=== PATIENT | female | born 1940 | race Caucasian/White ===

== ENCOUNTER 2016-10-22 10:20 | Outpatient (CLI) | payer MEDICARE, OTHER | END 2016-10-22 10:21 | disposition home or self-care (01) | DX: I25.10 Atherosclerotic heart disease of native coronary artery without angina pectoris (principal); E03.9 Hypothyroidism, unspecified ==

== ENCOUNTER 2016-10-25 10:35 | Outpatient (CLI) | payer MEDICARE, OTHER | END 2016-10-25 10:36 | disposition home or self-care (01) | DX: E03.9 Hypothyroidism, unspecified (principal); D72.829 Elevated white blood cell count, unspecified ==

== ENCOUNTER 2016-11-05 09:52 | Outpatient (CLI) | payer MEDICARE, OTHER | END 2016-11-05 09:53 | disposition home or self-care (01) | DX: D72.829 Elevated white blood cell count, unspecified (principal) ==

== ENCOUNTER 2017-01-22 16:48 | Outpatient (CLI) | payer MEDICARE, OTHER | END 2017-01-22 16:49 | disposition critical access hospital (66) | LOC: EMS 16:48 | PROVIDERS: ATTEND Surgery | DX: S81.812A Laceration without foreign body, left lower leg, initial encounter (principal) | CPT/HCPCS: A0425; A0429 ==

== ENCOUNTER 2017-01-22 17:03 | Emergency (ER) | payer MEDICARE, OTHER | END 2017-01-22 18:23 | disposition home or self-care (01) | DX: S81.812A Laceration without foreign body, left lower leg, initial encounter (principal); S81.811A Laceration without foreign body, right lower leg, initial encounter; W54.1XXA Struck by dog, initial encounter; I10 Essential (primary) hypertension; I25.2 Old myocardial infarction; J44.9 Chronic obstructive pulmonary disease, unspecified; E03.9 Hypothyroidism, unspecified; Z79.82 Long term (current) use of aspirin; F17.200 Nicotine dependence, unspecified, uncomplicated ==

== ENCOUNTER 2017-02-28 09:54 | Outpatient (CLI) | payer MEDICARE, OTHER ==
[2017-02-28 14:32] LABS: BASOPHILS # (AUTO) 0.1 10^3/uL (0.0-0.1); BASOPHILS % (AUTO) 0.8 %; EOSINOPHILS # (AUTO) 0.2 10^3/uL (0.0-0.7); EOSINOPHILS % (AUTO) 1.7 %; HCT - HEMATOCRIT 34.8 % (37.0-47.0); HGB - HEMOGLOBIN 11.7 g/dL (12.0-16.0); LYMPHOCYTES % (AUTO) 19.9 %; MEAN CORPUSCULAR HEMOGLOBIN 30.6 pg (27.0-31.0); MEAN CORPUSCULAR HGB CONC 33.5 g/dL (32.0-36.0); MEAN CORPUSCULAR VOLUME 91.4 fL (81.0-99.0); MEAN PLATELET VOLUME 8.3 fL (7.9-10.8); MONOCYTES % (AUTO) 9.8 %; NEUTROPHILS # (AUTO) 6.7 10^3/uL (1.5-6.6); NEUTROPHILS % (AUTO) 67.8 %; NUCLEATED RED BLOOD CELLS AUTO 0.1 /100WBC; RED BLOOD COUNT 3.81 10^6/uL (4.20-5.40); RED CELL DISTRIBUTION WIDTH 17.5 % (12.0-15.0); UNCORRECTED WHITE BLOOD COUNT 9.9 x10^3/uL; WHITE BLOOD COUNT 9.9 x10^3/uL (4.8-10.8)
[2017-02-28 15:01] LABS: BUN - BLOOD UREA NITROGEN 13 mg/dL (6-20); CALCIUM 9.6 mg/dL (8.5-10.3); CARBON DIOXIDE - CO2 30 mmol/L (21-32); CHLORIDE 97 mmol/L (101-111); CHOL/HDL RATIO 2.2 (<4.4); CHOLESTEROL 216 mg/dL; CREATININE 0.8 mg/dL (0.4-1.0); GFR - MDRD 70 (>89); GLUCOSE 90 mg/dL (70-100); HDL CHOLESTEROL 99 mg/dL; LDL/HDL RATIO 0.8 (<4.4); POTASSIUM 4.3 mmol/L (3.5-5.0); SODIUM 137 mmol/L (135-145); TRIGLYCERIDES 168 mg/dL; VLDL CHOLESTEROL 34 mg/dL
== END 2017-02-28 09:55 | disposition home or self-care (01) ==
LOC: LAB.WCP 09:54
PROVIDERS: ATTEND Internal Medicine Cardiovascular Disease
DX: I25.10 Atherosclerotic heart disease of native coronary artery without angina pectoris (principal); I10 Essential (primary) hypertension; Z95.5 Presence of coronary angioplasty implant and graft; E78.5 Hyperlipidemia, unspecified; J44.9 Chronic obstructive pulmonary disease, unspecified; F17.200 Nicotine dependence, unspecified, uncomplicated
CPT/HCPCS: 36415; 80048; 80061; 85025

== ENCOUNTER 2017-08-25 14:17 | Outpatient (CLI) | payer MEDICARE, OTHER | END 2017-08-25 14:18 | disposition critical access hospital (66) | LOC: EMS 14:17 | PROVIDERS: ATTEND Surgery | DX: R06.02 Shortness of breath (principal) | CPT/HCPCS: A0425; A0427 ==

== ENCOUNTER 2017-08-25 14:35 | Observation (INO) | payer MEDICARE, OTHER ==
--- NOTE | 2017-08-25 15:06 | ED Physician Documentation ---
PD HPI DYSPNEA - Stated complaint Stated Complaint: SOA - Chief complaint Chief Complaint: Resp - History obtained from History obtained from: Patient, Family - History of Present Illness Timing - onset: How many weeks ago (2) Timing - onset during: Rest Timing - duration: Weeks (2) Timing - details: Gradual onset Pain level max: 0 Pain level now: 0 Inciting event(s): URI (fever, cough, chills) Improved by: O2 (on 2L NC at home) Associated symptoms: Fever, Cough, Wheezing. No: Hemoptysis, Chest pain / discomfort Similar symptoms before: Diagnosis (COPD, pneumonia) Recently seen: Clinic (recently placed on abx, thinks levaquin, but is not better. Also was on a prednisone taper for 10 days. states not better.) Review of Systems Ten Systems: 10 systems reviewed and negative Constitutional: reports: Fever, Chills Ears: denies: Ear pain Nose: denies: Rhinorrhea / runny nose, Congestion Throat: denies: Sore throat Cardiac: denies: Chest pain / pressure Respiratory: reports: Dyspnea, Cough, Wheezing GI: denies: Abdominal Pain, Nausea, Vomiting, Diarrhea Skin: denies: Rash Musculoskeletal: denies: Neck pain, Back pain Neurologic: denies: Focal weakness, Numbness, Headache PD PAST MEDICAL HISTORY - Past Medical History Past Medical History: Yes Cardiovascular: Hypertension, [place], Murmur Respiratory: COPD, Shortness of breath Neuro: None Endocrine/Autoimmune: HyPOthyroidism GI: None : Incontinence HEENT: None Psych: None Musculoskeletal: Osteoarthritis, Other Derm: None - Past Surgical History General: Appendectomy, 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, Other - Present Medications Home Medications: Ambulatory Orders Medication Instructions Recorded Confirmed Aspirin EC [Ecotrin] 81 mg PO DAILY 04/17/13 08/25/17 Budesonide/Formoterol Fumarate 2 puffs INH BID 04/17/13 08/25/17 [Symbicort 160-4.5 Mcg Inhaler] Furosemide [Lasix] 20 mg PO DAILY 04/17/13 08/25/17 Levothyroxine [Synthroid] 50 mcg PO QDAC 04/17/13 08/25/17 Verapamil ER [Calan SA] 120 mg PO QPM 04/17/13 08/25/17 Atorvastatin Calcium 40 mg PO QPM 02/08/17 08/25/17 Albuterol Sulfate [Proair Hfa 2 puffs INH Q4H PRN 08/25/17 08/25/17 Inhaler] Hydrocodone/Acetaminophen 1 each PO Q6H PRN 08/25/17 08/25/17 [Hydrocodon-Acetaminoph 7.5-325] Ipratropium/Albuterol [Duoneb] 3 ml INH QID 08/25/17 08/25/17 Metoprolol Succinate 100 mg PO DAILY 08/25/17 08/25/17 - Allergies Allergies/Adverse Reactions: Allergies Allergy/AdvReac Type Severity Reaction Status Date / Time Penicillins Allergy Unknown unknown Verified 08/25/17 14:40 Sulfa (Sulfonamide Allergy Unknown unknown Verified 08/25/17 14:40 Antibiotics) tape adhesive AdvReac Intermediate tears skin Uncoded 01/22/17 17:05 - Social History Does the pt smoke?: No Smoking Status: Current every day smoker Does the pt drink ETOH?: Yes Does the pt have substance abuse?: No - Immunizations Immunizations are current?: No PD ED PE NORMAL - Vitals Vital signs reviewed: Yes - General General: Alert and oriented X 3, No acute distress, Well developed/nourished - HEENT HEENT: PERRL, Ears normal, Moist mucous membranes, Pharynx benign - Neck Neck: Supple, no meningeal sign - Cardiac Cardiac: RRR, Strong equal pulses - Respiratory Respiratory: No respiratory distress, Other (very diminished breath sounds bilaterally. Wheezing B. ) - Abdomen Abdomen: Soft, Non tender, Non distended - Derm Derm: Warm and dry - Extremities Extremities: No edema, No calf tenderness / cord - Neuro Neuro: Alert and oriented X 3 - Psych Psych: Normal mood, Normal affect Results - Vitals Vitals: Vital Signs - 24 hr 08/25/17 08/25/17 08/25/17 14:37 16:10 17:02 Temperature 36.0 C L Heart Rate 100 99 103 H Respiratory 26 H 22 21 Rate Blood Pressure 176/80 H 155/98 H O2 Saturation 100 99 08/25/17 08/25/17 17:30 17:45 Temperature Heart Rate 106 H 102 H Respiratory 34 H 28 H Rate Blood Pressure 146/99 H 135/84 H O2 Saturation 94 99 Oxygen O2 Source Nasal cannula Oxygen Flow Rate 2 - EKG (time done) 1514 Rate: Rate (enter#) (106) Rhythm: Sinus tachycardia Anderson: Normal Intervals: Normal UT QRS: Normal Ischemia: Normal ST segments Computer interpretation: Agree with computer - Labs Labs: Laboratory Tests 08/25/17 08/25/17 08/25/17 14:55 14:55 14:55 WBC 13.8 H RBC 4.01 L Hgb 12.2 Hct 36.8 L MCV 91.8 MCH 30.4 MCHC 33.1 RDW 16.4 H Plt Count 286 MPV 7.7 L Neut # 11.4 H Lymph # 0.9 L [place] # 1.2 H Eos # 0.3 Baso # 0.1 Absolute Nucleated RBC 0.00 Nucleated RBC % 0.0 Sodium 136 Potassium 4.0 Chloride 89 L Carbon Dioxide 33 H Anion Gap 14.0 H BUN 17 Creatinine 0.9 Estimated GFR (MDRD) 61 L Glucose 128 H Lactic Acid Calcium 9.3 Total Bilirubin 0.5 AST 32 ALT 20 Alkaline Phosphatase 67 Troponin I < 0.04 Total Protein 6.9 Albumin 3.6 Globulin 3.3 Albumin/Globulin Ratio 1.1 Lipase 20 L 08/25/17 15:11 WBC RBC Hgb Hct MCV MCH MCHC RDW Plt Count MPV Neut # Lymph # [place] # Eos # Baso # Absolute Nucleated RBC Nucleated RBC % Sodium Potassium Chloride Carbon Dioxide Anion Gap BUN Creatinine Estimated GFR (MDRD) Glucose Lactic Acid 1.3 Calcium Total Bilirubin AST ALT Alkaline Phosphatase Troponin I Total Protein Albumin Globulin Albumin/Globulin Ratio Lipase - Rads (name of study) cxr Radiology: Prelim report reviewed, EMP read contemporaneously, See rad report ( Stable chest. Moderate hyperinflation consistent with COPD. No pneumonia, CHF or other acute process. ) PD MEDICAL DECISION MAKING - ED course Complexity details: reviewed old records, reviewed results, re-evaluated patient , considered differential (No evidence of pneumonia, pulmonary embolus), d/w patient, d/w family ED course: Patient is a 76-year-old female who presents to the emergency department with what appears to be a COPD exacerbation. She is normally on 2 L of home O2, with EMS she received nebulizer treatment and had to increase her oxygen to 3 L. She was then given steroids here as well as his several nebulizer treatments. Oxygen level when she is lying still in bed is approximately 96% on 2 L, however whenever she starts to move or attempts to stand up drops to the mid 80s. She becomes visibly short of breath and unable to ambulate. Her aeration did improve slightly with nebulizer treatment, but will place in observation for continued care. Discussed the case with Dr. Obando, hospitalist who accepts. No evidence of pneumonia on x-ray. This document was made in part using voice recognition software. While efforts are made to proofread this document, sound alike and grammatical errors may occur. Departure - Departure Disposition: ED Place in Observation Clinical Impression: COPD exacerbation Dyspnea Qualifiers: Dyspnea type: unspecified Qualified Code(s): R06.00 - Dyspnea, unspecified Condition: Stable Discharge Date/Time: 08/25/17 18:51
[2017-08-25 15:10] LABS: BASOPHILS # (AUTO) 0.1 10^3/uL (0.0-0.1); BASOPHILS % (AUTO) 0.6 %; EOSINOPHILS # (AUTO) 0.3 10^3/uL (0.0-0.7); HCT - HEMATOCRIT 36.8 % (37.0-47.0); HGB - HEMOGLOBIN 12.2 g/dL (12.0-16.0); LYMPHOCYTES # (AUTO) 0.9 10^3/uL (1.5-3.5); LYMPHOCYTES % (AUTO) 6.8 %; MEAN CORPUSCULAR HEMOGLOBIN 30.4 pg (27.0-31.0); MEAN CORPUSCULAR HGB CONC 33.1 g/dL (32.0-36.0); MEAN CORPUSCULAR VOLUME 91.8 fL (81.0-99.0); MEAN PLATELET VOLUME 7.7 fL (7.9-10.8); MONOCYTES # (AUTO) 1.2 10^3/uL (0.0-1.0); MONOCYTES % (AUTO) 8.4 %; NEUTROPHILS # (AUTO) 11.4 10^3/uL (1.5-6.6); NEUTROPHILS % (AUTO) 82.2 %; RED BLOOD COUNT 4.01 10^6/uL (4.20-5.40); RED CELL DISTRIBUTION WIDTH 16.4 % (12.0-15.0); UNCORRECTED WHITE BLOOD COUNT 13.8 x10^3/uL; WHITE BLOOD COUNT 13.8 x10^3/uL (4.8-10.8)
[2017-08-25 15:19] LABS: ALBUMIN/GLOBULIN RATIO 1.1 (1.0-2.2); BILIRUBIN,TOTAL 0.5 mg/dL (0.2-1.0); CALCIUM 9.3 mg/dL (8.5-10.3); CREATININE 0.9 mg/dL (0.4-1.0); TOTAL PROTEIN 6.9 g/dL (6.7-8.2)
[2017-08-25] MEDS ORDERED: methylPREDNISolone SUCCINATE 125 MG/2 ML VIAL IVP STA (15:38)
[2017-08-25] MEDS ORDERED: IPRATROPIUM/ALBUTEROL 3 ML NEB INH STA (15:38)
[2017-08-25] MEDS ORDERED: methylPREDNISolone SUCCINATE 125 MG/2 ML VIAL ONE (15:48)
--- NOTE | 2017-08-25 15:53 | XRAY Preliminary Report ---
Exam: XR CHEST 2 VIEW PA/LAT IMPRESSION: Stable chest. Moderate hyperinflation consistent with COPD. No pneumonia, CHF or other ac nez perce process. [facility] SITE ID: [id number]
--- NOTE | 2017-08-25 15:55 | XRAY Report ---
EXAM: CHEST RADIOGRAPHY, 2 VIEWS EXAM DATE: 08/25/2017 03:04 PM. CLINICAL HISTORY: 76-year-old female with fever and cough. COMPARISON: AP portable study 03/30/2016 and earlier studies.. TECHNIQUE: Upright PA and lateral views. FINDINGS: Lungs/Pleura: No focal opacities evident. No pleural effusion. No pneumothorax. Moderate hyperinflati on, as previously. Mediastinum: Heart and mediastinal contours are unremarkable. No pulmonary vascular congestion or sylvia nopathy. Other: Trachea is midline. Osseous structures are unremarkable for age. IMPRESSION: Stable chest. Moderate hyperinflation consistent with COPD. No pneumonia, CHF or other ac torin process. [facility] Referring Provider Line: [phone] SITE ID: [id number]
[2017-08-25] MEDS ORDERED: IPRATROPIUM/ALBUTEROL 3 ML NEB INH ONE (16:13)
[2017-08-25] MEDS ORDERED: ALBUTEROL NEB 2.5 MG/3 ML INH STA (17:03)
[2017-08-25] MEDS ORDERED: ALBUTEROL NEB 2.5 MG/3 ML INH ONE (17:34)
[2017-08-25] MEDS ORDERED: ACETAMINOPHEN 325 MG TABLET PO PRN (17:52)
[2017-08-25] MEDS ORDERED: ZOLPIDEM 5 MG TABLET PO PRN (17:52)
[2017-08-25] MEDS ORDERED: ONDANSETRON 4 MG/2 ML VIAL IVP PRN (17:52)
--- NOTE | 2017-08-25 18:12 | HISTORY & PHYSICAL EXAMINATION ---
Chief Complaint - Chief Complaint Chief Complaint: shortness of breath History of Present Illness - Admitted From Admitted From:: ER - History Obtained From History obtained from: pt - History of Present Illness HPI Comment/Other: This is a 76-year-old female with PMH of HTN, [place], Heart Murmur, severe COPD with daily 2 L of O2, current cigarette smoker, shortness of breath, hypothyroidism, urinary incontinence, osteoarthritis, who presents to the emergency department with shortness of breath, which appears to be a COPD exacerbation. Pt report she has normally on 2 L of home O2. In EMS pt received nebulizer treatment. Pt's oxygen increase to 3 L. She was then given steroids in ER room, as well as his several nebulizer treatments. Oxygen saturation level approximately has 96% on 2 L when she is lying still in bed, however when she starts to move or attempts to stand up drops to the mid 80s. She becomes short of breath when ambulating. Pt is still smoking cigarette daily. No evidence of pneumonia, CHF or fluid or other acute process on x-ray, moderate hyperinflation consistent with COPD. 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 Pt has partner, no children. Pt is still smoking with cigarette. Denies alcohol or drug issue. Living arrangement: At home Living Situation: With spouse/s.o. - Substance History Use: Uses substance without health or social issues: Tobacco Dependence: Experiences withdrawal or developed tolerances: Tobacco Tobacco Details: Cigarettes - POLST POLST Status: Full Code Meds/Allgy - Home Medications Home Medications: Ambulatory Orders Medication Instructions Recorded Confirmed Aspirin EC [Ecotrin] 81 mg PO DAILY 04/17/13 08/25/17 Budesonide/Formoterol Fumarate 2 puffs INH BID 04/17/13 08/25/17 [Symbicort 160-4.5 Mcg Inhaler] Furosemide [Lasix] 20 mg PO DAILY 04/17/13 08/25/17 Levothyroxine [Synthroid] 50 mcg PO QDAC 04/17/13 08/25/17 Verapamil ER [Calan SA] 120 mg PO QPM 04/17/13 08/25/17 Atorvastatin Calcium 40 mg PO QPM 02/08/17 08/25/17 Albuterol Sulfate [Proair Hfa 2 puffs INH Q4H PRN 08/25/17 08/25/17 Inhaler] Hydrocodone/Acetaminophen 1 each PO Q6H PRN 08/25/17 08/25/17 [Hydrocodon-Acetaminoph 7.5-325] Ipratropium/Albuterol [Duoneb] 3 ml INH QID 08/25/17 08/25/17 Metoprolol Succinate 100 mg PO DAILY 08/25/17 08/25/17 - Allergies Allergies/Adverse Reactions: Allergies Allergy/AdvReac Type Severity Reaction Status Date / Time Penicillins Allergy Unknown unknown Verified 08/25/17 14:40 Sulfa (Sulfonamide Allergy Unknown unknown Verified 08/25/17 14:40 Antibiotics) tape adhesive AdvReac Intermediate tears skin Uncoded 01/22/17 17:05 Review of Systems - Constitutional Constitutional: reports: Night sweats. denies: Fatigue, Fever, Chills, Malaise , Weakness, Poor appetite, Diaphoresis - Eyes Eyes: denies: Pain, Irritation, Amaurosis, Blurred vision, Spots in vision, Field loss, Vision loss, Dipolpia - Ears, Nose & Throat Ears, Nose & Throat: denies: Ear pain, Hearing loss, Hearing aids, Tinnitus, Vertigo, Nasal pain, Nasal discharge, Nosebleeds, Sore throat, Bleeding gums - Cardiovascular Cariovascular: denies: Irregular heart rate, Palpitations, Chest pain, Edema, Lightheadedness, Syncope, Exertional dyspnea, Decr. exercise tolerance - Respiratory Respiratory: reports: Cough, Sputum production, Wheezing, SOB with exertion. denies: Snoring, Hemoptysis, Orthopnea, SOB at rest, Apnea, Stridor, Pleuritic pain - Gastrointestinal Gastrointestinal: denies: Abdominal pain, Abdominal distention, Constipation, Diarrhea, Change in bowel habits, Rectal bleeding, Black stools, Bloody stools, Nausea, Vomiting, Ji blood emesis, Coffee grounds emesis, Reflux/heartburn - Genitourinary Genitourinary: denies: Dysuria, Frequency, Urgency, Hematuria, Incontinence, Flank pain, Nocturia, Urethral discharge - Musculoskeletal Musculoskeletal: denies: Muscle pain, Back pain, Muscle aches, Stiffness, Limited range of motion, Muscle weakness, Gout, Joint pain - Integumentary Integumentary: denies: Rash, Lesions, Dryness, Lumps, Pigment changes - Neurological Neurological: denies: General weakness, Focal weakness, Headache, Dizziness, Numbness, Memory problems, Pre-existing deficit, Abnormal gait, Seizures, Incoordination, Slurred speech - Psychiatric Psychiatric: denies: Depression, Anxiety, Suicidal, Delusions, Hallucinations, Homicidal - Endocrine Endocrine: denies: Polyuria, Polydypsia, Polyphagia, Intolerance to cold - Hematologic/Lymphatic Hematologic/Lymphatic: denies: Anemia, Bruising, Petechiae, Blood clots, Lymphadenopathy, Bleeding tendencies Exam - Vital Signs Reviewed Vital Signs: Yes Vital Signs: Vital Signs x48h Temp Pulse Resp BP Pulse Ox 08/25/17 17:45 102 H 28 H 135/84 H 99 08/25/17 17:30 106 H 34 H 146/99 H 94 08/25/17 17:02 103 H 21 155/98 H 99 08/25/17 16:10 99 22 08/25/17 14:37 36.0 C L 100 26 H 176/80 H 100 - Physical Exam General Appearance: positive: No acute distress, Alert. negative: Lethargic Eyes Bilateral: positive: Normal inspection, PERRL, No lid inflammation, Conjunctivae nml ENT: positive: ENT inspection nml, Pharynx nml, No signs of dehydration. negative: Purulent nasal drainage, Pharyngeal erythema, Oral lesions Neck: positive: Nml inspection, Thyroid nml, No JVD, Trachea midline. negative : Thyromegaly, Lymphadenopathy (R), Lymphadenopathy (L), Stiff neck, Carotid bruit, Swelling/bruising, Tracheal deviation Respiratory: positive: Chest non-tender, No respiratory distress, Wheezes Cardiovascular: positive: Regular rate & rhythm, No murmur, No gallop. negative : Irregularly irregular, Extrasystoles, Tachycardia, Bradycardia, Systolic murmur, Diastolic murmur Peripheral Pulses: positive: 2+ Abdomen: positive: Non-tender, No organomegaly, Nml bowel sounds, No distention. negative: Tenderness, Guarding, Rebound, Abnml bowel sounds Back: positive: Nml inspection. negative: CVA tenderness (R), CVA tenderness (L ) Skin: positive: Color nml, No rash, Warm, Dry. negative: Cyanosis, Diaphoresis , Pallor Extremities: positive: Non-tender, Full ROM, Nml appearance. negative: Calf tenderness, Joint swelling, Deric's sign/cords Neurologic/Psychiatric: positive: Oriented x3, Motor nml, Sensation nml, Mood/ affect nml. negative: Sensory loss, Facial droop, Slurred/abnml speech, Depressed mood/affect Conclusion/Plan - Problem List (1) COPD exacerbation Conclusion/Plan: hx of COPD, O2 dependence at home. CXR reveals moderate hyperinflation consistent with COPD solu-metrol IV, Duoneb Albuterol PRN O2 NS monitor vital, Oxyometer (2) Dyspnea Conclusion/Plan: hx of SOB, with O2 dependence at home. it appears COPD exacerbation will do De-saturation O2 study on rest, walk, with O2 supplement. may consider cardiac study if improvement is limited by treatment of COPD exacerbation continue O supplement continue treatment of COPD exacerbation vital, Saturation of O2 monitor Qualifiers: Dyspnea type: unspecified Qualified Code(s): R06.00 - Dyspnea, unspecified (3) Hx of non-ST elevation myocardial infarction (NSTEMI) Conclusion/Plan: pt denies chest pain, troponin test negative. EKG sinus tachycardia. will continue tele and vital monitor resume of home medication regime. (4) Cigarette smoker Conclusion/Plan: pt is current smoker. consult pt for quitting cigarette smoking. Nicotine patch (5) Hypothyroidism Conclusion/Plan: stable, resume home Levothyroid check TSH (6) DVT prophylaxis Conclusion/Plan: SCD and Lovenox (7) Full code status Conclusion/Plan: pt request full code status - Lab Results Fish Bones: 08/26/17 05:05 08/26/17 06:12 Issues/Core Measures - Anticipated LOS Anticipated Stay Length: Less than 2 midnights (expected less than 2 midnight for COPD exacerbation treatment) - [facility] Requirement for [facility] I expect patient to be DC'd or transferred within 96 hours.: Yes
[2017-08-25] MEDS: LEVOTHYROXINE 25 MCG TABLET PO SCH (19:20)
[2017-08-25] MEDS: HYDROcod/ACETAM 7.5 MG/325 MG TABLET PO PRN (19:20)
[2017-08-25] MEDS: METOPROLOL SUCCINATE 50 MG TABLET PO SCH (20:42)
[2017-08-25] MEDS: VERAPAMIL ER 120 MG TABLET PO SCH (20:42)
[2017-08-25] MEDS: ATORVASTATIN 40 MG TABLET PO SCH (20:42)
[2017-08-25] MEDS: IPRATROPIUM/ALBUTEROL 3 ML NEB INH PRN (20:45)
[2017-08-25] MEDS: methylPREDNISolone SUCCINATE 125 MG/2 ML VIAL IVP SCH (20:47)
[2017-08-25] MEDS: SODIUM CHLORIDE FLUSH 0.9% 10 ML SYRINGE IVP SCH (20:48)
[2017-08-26] MEDS: ALBUTEROL NEB 2.5 MG/3 ML INH PRN ×3 (00:30→17:08)
[2017-08-26] MEDS: HYDROcod/ACETAM 7.5 MG/325 MG TABLET PO PRN ×5 (00:38→23:52)
[2017-08-26] MEDS: IPRATROPIUM/ALBUTEROL 3 ML NEB INH PRN ×2 (05:15→13:05)
[2017-08-26 05:20] LABS: BASOPHILS % (AUTO) 0.1 %; LYMPHOCYTES # (AUTO) 0.2 10^3/uL (1.5-3.5); MEAN CORPUSCULAR HEMOGLOBIN 30.3 pg (27.0-31.0); MEAN CORPUSCULAR HGB CONC 32.3 g/dL (32.0-36.0); MEAN CORPUSCULAR VOLUME 93.6 fL (81.0-99.0); MEAN PLATELET VOLUME 7.8 fL (7.9-10.8); MONOCYTES # (AUTO) 0.1 10^3/uL (0.0-1.0); MONOCYTES % (AUTO) 0.7 %; NEUTROPHILS # (AUTO) 11.2 10^3/uL (1.5-6.6); NEUTROPHILS % (AUTO) 97.2 %; RED BLOOD COUNT 3.63 10^6/uL (4.20-5.40); RED CELL DISTRIBUTION WIDTH 15.8 % (12.0-15.0); UNCORRECTED WHITE BLOOD COUNT 11.5 x10^3/uL; WHITE BLOOD COUNT 11.5 x10^3/uL (4.8-10.8)
[2017-08-26] MEDS: methylPREDNISolone SUCCINATE 125 MG/2 ML VIAL IVP SCH ×2 (05:33→21:43)
[2017-08-26] MEDS: SODIUM CHLORIDE FLUSH 0.9% 10 ML SYRINGE IVP SCH ×3 (05:34→21:43)
[2017-08-26] MEDS: SODIUM CHLORIDE FLUSH 0.9% 10 ML SYRINGE IVP PRN ×4 (05:34→13:41)
[2017-08-26] MEDS: LEVOTHYROXINE 25 MCG TABLET PO SCH (06:05)
[2017-08-26] MEDS ORDERED: FUROSEMIDE 20 MG TABLET ONE (06:06)
[2017-08-26 06:32] LABS: BILIRUBIN,TOTAL 0.4 mg/dL (0.2-1.0); CALCIUM 8.8 mg/dL (8.5-10.3); CREATININE 0.5 mg/dL (0.4-1.0); MAGNESIUM 1.8 mg/dL (1.7-2.8); POTASSIUM 4.4 mmol/L (3.5-5.0); TOTAL PROTEIN 6.5 g/dL (6.7-8.2)
[2017-08-26] MEDS: AZITHROMYCIN 250 MG TABLET PO SCH (08:51)
[2017-08-26] MEDS: ENOXAPARIN 40 MG/0.4 ML SYRINGE SUBQ SCH (08:52)
[2017-08-26] MEDS: METOPROLOL SUCCINATE 50 MG TABLET PO SCH (08:52)
[2017-08-26] MEDS: FAMOTIDINE 20 MG TABLET PO SCH ×2 (08:52→08:55)
[2017-08-26] MEDS: FUROSEMIDE 20 MG TABLET PO SCH ×2 (08:52→08:54)
[2017-08-26] MEDS: ASPIRIN EC 81 MG TABLET PO SCH (08:52)
[2017-08-26] MEDS: POLYETHYLENE GLYCOL 3350 17 GM PACKET PO SCH (08:53)
[2017-08-26] MEDS ORDERED: METOPROLOL SUCCINATE 100 MG PO SCH (09:00)
[2017-08-26] MEDS: NICOTINE 14 MG PATCH TOP SCH (10:38)
[2017-08-26] MEDS ORDERED: FORMOTEROL FUMARATE NEB 20 MCG/2 ML INH SCH ×3 (12:00→19:00)
[2017-08-26] MEDS ORDERED: BUDESONIDE/FORMOTEROL 160/4.5 MCG INHALER INH SCH (12:00)
[2017-08-26] MEDS ORDERED: BUDESONIDE 0.5 MG/2 ML NEB INH SCH ×2 (12:00→19:00)
[2017-08-26] MEDS ORDERED: methylPREDNISolone SUCCINATE 125 MG/2 ML VIAL IVP SCH (14:00)
--- NOTE | 2017-08-26 14:29 | Discharge Plan ---
Discharge Plan Disposition: Home, Self Care Condition: Stable Prescriptions: Azithromycin 250 mg PO DAILY #4 tablet Diet: Cardiac Activity Restrictions: Activity as Tolerated Shower Restrictions: No Weight Bearing: Full Weight Instruction Topics: Bronchitis Chronic, COPD, Oxygen Home Use Additional Instructions or Follow Up instructions: may see PCP in one week,and [facility] Follow-Up Care: [facility] No Smoking: If you smoke, Please STOP! Call for help. Follow-up with: Cinthya Huggins DO [Primary Care Provider] -
--- NOTE | 2017-08-26 15:19 | DISCHARGE SUMMARY ---
Discharge Summary Discharge Date: 08/27/17 Discharging Provider: RASCON Primary Care Provider: Cinthya Poe Code Status: Attempt Resuscitation Condition at Discharge: Stable Discharge Disposition: 01 Home, Self Care Discharge Facility Name: home - ALLERGIES Allergies/Adverse Reactions: Allergies Allergy/AdvReac Type Severity Reaction Status Date / Time Penicillins Allergy Unknown unknown Verified 08/25/17 14:40 Sulfa (Sulfonamide Allergy Unknown unknown Verified 08/25/17 14:40 Antibiotics) tape adhesive AdvReac Intermediate tears skin Uncoded 01/22/17 17:05 - MEDICATIONS Home Medications: Ambulatory Orders Medication Instructions Recorded Confirmed Aspirin EC [Ecotrin] 81 mg PO DAILY 04/17/13 08/25/17 Budesonide/Formoterol Fumarate 2 puffs INH BID 04/17/13 08/25/17 [Symbicort 160-4.5 Mcg Inhaler] Furosemide [Lasix] 20 mg PO DAILY 04/17/13 08/25/17 Levothyroxine [Synthroid] 50 mcg PO QDAC 04/17/13 08/25/17 Verapamil ER [Calan SA] 120 mg PO QPM 04/17/13 08/25/17 Atorvastatin Calcium 40 mg PO QPM 02/08/17 08/25/17 Hydrocodone/Acetaminophen 1 each PO Q6H PRN 08/25/17 08/25/17 [Hydrocodone-Acetamin 7.5-325] Metoprolol Succinate 100 mg PO 2100 08/25/17 08/26/17 Azithromycin 250 mg PO DAILY #4 tablet 08/26/17 Ipratropium/Albuterol Sulfate 3 ml IH 5XD 08/26/17 08/26/17 [Iprat-Albut 0.5-3(2.5) mg/3 ml] - LABS Result Diagrams: 08/26/17 05:05 08/26/17 06:12
--- NOTE | 2017-08-26 15:47 | PROVIDER PROGRESS NOTE ---
Subjective - Prog Note Date Prog Note Date: 08/26/17 - Subjective Pt reports feeling: Improved Subjective: pt state she feel much better. RT did walk and exercise SO2 test. Pt had SO2 at 92% when she walk with 2L O2. Pt had daily 2L O2 supplement. Pt is ready to be D /C but unfortunately pt did not have caregiver tonight. so it not safe to be D/ C tonight Current Medications - Current Medications Current Medications: Active Medications Acetaminophen (Tylenol) 650 mg PO Q4HR PRN PRN Reason: Pain 1 to 4 Acetaminophen/Hydrocodone Bitart ([place] 7.5/325) 1 tab PO Q6H PRN PRN Reason: PAIN Last Admin: 08/26/17 12:18 Dose: 1 tab Albuterol () 2.5 mg INH RTQ4H PRN PRN Reason: Wheezing Last Admin: 08/26/17 09:12 Dose: 2.5 mg Albuterol/Ipratropium (Duoneb) 3 ml INH RTQ4H PRN PRN Reason: Wheezing Last Admin: 08/26/17 13:05 Dose: 3 ml Aspirin (Ecotrin) 81 mg PO DAILY [facility] Last Admin: 08/26/17 08:52 Dose: 81 mg Atorvastatin Calcium (Lipitor) 40 mg PO QPM [facility] Last Admin: 08/25/17 20:42 Dose: 40 mg Azithromycin (Zithromax) 500 mg PO DAILY [facility] Last Admin: 08/26/17 08:51 Dose: 500 mg Budesonide (Pulmicort) 0.5 mg INH RTBID EST[place] Enoxaparin Sodium (Lovenox) 40 mg SUBQ DAILY [facility] Last Admin: 08/26/17 08:52 Dose: 40 mg Famotidine (Pepcid) 20 mg PO DAILY [facility] Last Admin: 08/26/17 08:55 Dose: Not Given Formoterol Fumarate (Perforomist) 20 mcg INH RTBID ESTEBAN Furosemide (Lasix) 20 mg PO DAILY [facility] Last Admin: 08/26/17 08:54 Dose: Not Given Levothyroxine Sodium (Synthroid) 50 mcg PO QDAC [facility] Last Admin: 08/26/17 06:05 Dose: 50 mcg Methylprednisolone Sodium Succinate (Solu-Medrol (125mg Vial)) 60 mg IVP TID [facility] Metoprolol Succinate (Toprol Xl) 100 mg PO DAILY [facility] Last Admin: 08/26/17 08:52 Dose: 100 mg Nicotine (Nicoderm) 1 patch TOP DAILY [facility] Last Admin: 08/26/17 10:38 Dose: 1 patch Ondansetron HCl (Zofran Inj) 4 mg IVP Q6HR PRN PRN Reason: Nausea / Vomiting Polyethylene Glycol (Miralax) 17 gm PO DAILY [facility] Last Admin: 08/26/17 08:53 Dose: Not Given Sodium Chloride (Normal Saline Flush 0.9%) 10 ml IVP PRN PRN PRN Reason: NEEDED PER PROVIDER ORDERS Last Admin: 08/26/17 13:41 Dose: 10 ml Sodium Chloride (Normal Saline Flush 0.9%) 10 ml IVP Q8HR [facility] Last Admin: 08/26/17 06:54 Dose: 10 ml Verapamil HCl (Calan Sa) 120 mg PO QPM [facility] Last Admin: 08/25/17 20:42 Dose: 120 mg Zolpidem Tartrate (Ambien) 5 mg PO QPM PRN PRN Reason: Insomnia Aspirin EC [Ecotrin] 81 mg PO DAILY 04/17/13 Budesonide/Formoterol Fumarate [Symbicort 160-4.5 Mcg Inhaler] 2 puffs INH BID 04/17/13 Furosemide [Lasix] 20 mg PO DAILY 04/17/13 Levothyroxine [Synthroid] 50 mcg PO QDAC 04/17/13 Verapamil ER [Calan SA] 120 mg PO QPM 04/17/13 Atorvastatin Calcium 40 mg PO QPM 02/08/17 Hydrocodone/Acetaminophen [Hydrocodone-Acetamin 7.5-325] 1 each PO Q6H PRN 08/25 Metoprolol Succinate 100 mg PO 2100 08/25/17 Ipratropium/Albuterol Sulfate [Iprat-Albut 0.5-3(2.5) mg/3 ml] 3 ml IH 5XD 08/26 Objective - Vital Signs/Intake & Output Reviewed Vital Signs: Yes Vital Signs: Vital Signs x48h Temp Pulse Pulse Resp BP BP Pulse Ox 08/26/17 15:40 36.9 C 83 20 108/65 95 08/26/17 13:05 88 14 08/26/17 11:48 36.7 C 78 20 144/65 H 94 08/26/17 09:12 87 14 08/26/17 08:02 36.9 C 84 18 124/57 L 95 Intake & Output: Intake & Output 08/23/17 08/24/17 08/25/17 08/26/17 23:59 23:59 23:59 23:59 Intake Total 200 580 Balance 200 580 - Objective General Appearance: positive: No acute distress, Alert. negative: Lethargic Eyes Bilateral: positive: Normal inspection, PERRL, EOMI, No lid inflammation, Conjunctivae nml ENT: positive: ENT inspection nml, Pharynx nml, No signs of dehydration. negative: Purulent nasal drainage, Pharyngeal erythema, Oral lesions, Dry mucous membranes Neck: positive: Nml inspection, Thyroid nml, No JVD, Trachea midline. negative : Thyromegaly, Lymphadenopathy (R), Lymphadenopathy (L), Stiff neck, Carotid bruit, Swelling/bruising, Tracheal deviation Respiratory: positive: Chest non-tender, No respiratory distress, Breath sounds nml, Wheezes. negative: Rales, Rhonchi Cardiovascular: positive: Regular rate & rhythm, No murmur, No gallop. negative : Irregularly irregular, Extrasystoles, Tachycardia, Bradycardia, Systolic murmur, Diastolic murmur Peripheral Pulses: 2+ Radial (R), 2+ Radial (L), 2+ Dorsalis pedis (R), 2+ Dorsalis pedis (L) Abdomen: positive: Non-tender, No organomegaly, Nml bowel sounds, No distention. negative: Tenderness, Guarding, Rebound Back: positive: Nml inspection. negative: CVA tenderness (R), CVA tenderness (L ) Skin: positive: Color nml, No rash, Warm, Dry. negative: Cyanosis, Diaphoresis , Pallor Extremities: positive: Non-tender, Full ROM, Nml appearance. negative: Calf tenderness, Joint swelling, Deric's sign/cords Neurologic/Psychiatric: positive: Oriented x3, Motor nml, Sensation nml, Mood/ affect nml. negative: Sensory loss, Facial droop, Slurred/abnml speech, Depressed mood/affect - Lab Results Fish Bones: 08/26/17 05:05 08/26/17 06:12 Other Labs: Lab Results x24hrs 12/15/17 12/15/17 12/15/17 Range/Units 06:12 06:12 05:05 WBC (4.8-10.8) x10^3/uL RBC (4.20-5.40) 10^6/uL Hgb (12.0-16.0) g/dL Hct (37.0-47.0) % MCV (81.0-99.0) fL MCH (27.0-31.0) pg MCHC (32.0-36.0) g/dL RDW (12.0-15.0) % Plt Count (130-450) 10^3/uL MPV (7.9-10.8) fL Neut # (1.5-6.6) 10^3/uL Lymph # (1.5-3.5) 10^3/uL [place] # (0.0-1.0) 10^3/uL Eos # (0.0-0.7) 10^3/uL Baso # (0.0-0.1) 10^3/uL Absolute Nucleated RBC x10^3/uL Nucleated RBC % /100WBC Sodium 132 L (135-145) mmol/L Potassium 4.4 (3.5-5.0) mmol/L Chloride 90 L (101-111) mmol/L Carbon Dioxide 30 (21-32) mmol/L Anion Gap 12.0 (6-13) BUN 14 (6-20) mg/dL Creatinine 0.5 (0.4-1.0) mg/dL Estimated GFR (MDRD) 120 (>89) Glucose 133 H (70-100) mg/dL Calcium 8.8 (8.5-10.3) mg/dL Magnesium 1.8 (1.7-2.8) mg/dL Total Bilirubin 0.4 (0.2-1.0) mg/dL AST 29 (10-42) IU/L ALT 18 (10-60) IU/L Alkaline Phosphatase 58 (42-121) IU/L B-Natriuretic Peptide 181 H (5-100) pg/mL Total Protein 6.5 L (6.7-8.2) g/dL Albumin 3.2 (3.2-5.5) g/dL Globulin 3.3 (2.1-4.2) g/dL Albumin/Globulin Ratio 1.0 (1.0-2.2) TSH 2.15 (0.34-5.60) uIU/mL 08/26/17 Range/Units 05:05 WBC 11.5 H (4.8-10.8) x10^3/uL RBC 3.63 L (4.20-5.40) 10^6/uL Hgb 11.0 L (12.0-16.0) g/dL Hct 34.0 L (37.0-47.0) % MCV 93.6 (81.0-99.0) fL MCH 30.3 (27.0-31.0) pg MCHC 32.3 (32.0-36.0) g/dL RDW 15.8 H (12.0-15.0) % Plt Count 279 (130-450) 10^3/uL MPV 7.8 L (7.9-10.8) fL Neut # 11.2 H (1.5-6.6) 10^3/uL Lymph # 0.2 L (1.5-3.5) 10^3/uL [place] # 0.1 (0.0-1.0) 10^3/uL Eos # 0.0 (0.0-0.7) 10^3/uL Baso # 0.0 (0.0-0.1) 10^3/uL Absolute Nucleated RBC 0.00 x10^3/uL Nucleated RBC % 0.0 /100WBC Sodium (135-145) mmol/L Potassium (3.5-5.0) mmol/L Chloride (101-111) mmol/L Carbon Dioxide (21-32) mmol/L Anion Gap (6-13) BUN (6-20) mg/dL Creatinine (0.4-1.0) mg/dL Estimated GFR (MDRD) (>89) Glucose (70-100) mg/dL Calcium (8.5-10.3) mg/dL Magnesium (1.7-2.8) mg/dL Total Bilirubin (0.2-1.0) mg/dL AST (10-42) IU/L ALT (10-60) IU/L Alkaline Phosphatase (42-121) IU/L B-Natriuretic Peptide (5-100) pg/mL Total Protein (6.7-8.2) g/dL Albumin (3.2-5.5) g/dL Globulin (2.1-4.2) g/dL Albumin/Globulin Ratio (1.0-2.2) TSH (0.34-5.60) uIU/mL Assessment/Plan - Problem List (1) COPD exacerbation Impression: pt has great improved. 99% at 2 liter of O2at rest. exertion 92% at 2 L of O2. pt report she did not have caregiver tonight, it is not safe to send pt to go to home plan D/C tomorrow. continue the same treatment hx of COPD, O2 dependence at home. CXR reveals moderate hyperinflation consistent with COPD solu-metrol IV, Duoneb Albuterol PRN O2 NS monitor vital, Oxyometer (2) Dyspnea Conclusion/Plan: great improved keep the same treatment vital monitor hx of SOB, with O2 dependence at home. it appears COPD exacerbation will do De-saturation O2 study on rest, walk, with O2 supplement. may consider cardiac study if improvement is limited by treatment of COPD exacerbation continue O supplement continue treatment of COPD exacerbation vital, Saturation of O2 monitor (3) Hx of non-ST elevation myocardial infarction (NSTEMI) Conclusion/Plan: tele and vital monitor pt denies chest pain, troponin test negative. EKG sinus tachycardia. will continue tele and vital monitor resume of home medication regime. (4) Cigarette smoker Conclusion/Plan: pt is current smoker. consult pt for quitting cigarette smoking. Nicotine patch (5) Hypothyroidism Conclusion/Plan: stable, resume home Levothyroid check TSH (6) Bronchitis pt has cough, with yellow sputum and night sweating but no fever or chill, CXR reveals no pneumonia culture sputum Azithyomycin daily (2) Dyspnea Qualifiers: Dyspnea type: unspecified Qualified Code(s): R06.00 - Dyspnea, unspecified
[2017-08-26] MEDS: BUDESONIDE 0.5 MG/2 ML NEB INH SCH (19:53)
[2017-08-26] MEDS: FORMOTEROL FUMARATE NEB 20 MCG/2 ML INH SCH (19:54)
[2017-08-26] MEDS: ATORVASTATIN 40 MG TABLET PO SCH (21:41)
[2017-08-26] MEDS: VERAPAMIL ER 120 MG TABLET PO SCH (21:41)
[2017-08-27] MEDS: ALBUTEROL NEB 2.5 MG/3 ML INH PRN (00:03)
[2017-08-27] MEDS: methylPREDNISolone SUCCINATE 125 MG/2 ML VIAL IVP SCH (05:55)
[2017-08-27] MEDS: LEVOTHYROXINE 25 MCG TABLET PO SCH ×2 (05:55→05:56)
[2017-08-27] MEDS: SODIUM CHLORIDE FLUSH 0.9% 10 ML SYRINGE IVP PRN (05:56)
[2017-08-27] MEDS: SODIUM CHLORIDE FLUSH 0.9% 10 ML SYRINGE IVP SCH (05:56)
[2017-08-27] MEDS: IPRATROPIUM/ALBUTEROL 3 ML NEB INH PRN ×2 (06:12→11:03)
[2017-08-27] MEDS: BUDESONIDE 0.5 MG/2 ML NEB INH SCH (07:15)
[2017-08-27] MEDS: FORMOTEROL FUMARATE NEB 20 MCG/2 ML INH SCH (07:15)
[2017-08-27] MEDS: AZITHROMYCIN 250 MG TABLET PO SCH (08:24)
[2017-08-27] MEDS: METOPROLOL SUCCINATE 50 MG TABLET PO SCH (08:24)
[2017-08-27] MEDS: ENOXAPARIN 40 MG/0.4 ML SYRINGE SUBQ SCH (08:24)
[2017-08-27] MEDS: ASPIRIN EC 81 MG TABLET PO SCH (08:24)
[2017-08-27] MEDS: FUROSEMIDE 20 MG TABLET PO SCH (08:24)
[2017-08-27] MEDS: FAMOTIDINE 20 MG TABLET PO SCH (08:24)
[2017-08-27] MEDS: NICOTINE 14 MG PATCH TOP SCH (08:24)
[2017-08-27] MEDS: POLYETHYLENE GLYCOL 3350 17 GM PACKET PO SCH (08:25)
--- NOTE | 2017-08-27 10:58 | DISCHARGE SUMMARY ---
Discharge Summary Discharge Date: 08/27/17 Discharging Provider: RASCON Primary Care Provider: Cinthya Bedolla Condition at Discharge: Stable Discharge Disposition: 01 Home, Self Care Discharge Facility Name: home - DIAGNOSES Admission Diagnoses: (1) COPD exacerbation (2) Dyspnea (3) Hx of non-ST elevation myocardial infarction (NSTEMI) (4) Cigarette smoker (5) Hypothyroidism (6) Bronchitis Discharge Diagnoses with Status of Each Condition: (1) COPD exacerbation well controlled. Pt take 2L of O2 at home. RT exercise study revealed 91%-94% of SO2 on 2 liter of O2. Pt state she is ready to d/c. She state she feel much better. rest SO2 95% with 2 liter O2 (2) Dyspnea well controlled. pt can walk without SOB. RT exercise study revealed 91%-94% of SO2 on 2 liter of O2, rest SO2 95% with 2 liter O2 (3) Hx of non-ST elevation myocardial infarction (NSTEMI) stable, follow up PCP (4) Cigarette smoker consult for pt quitting cigarette (5) Hypothyroidism stable (6) Bronchitis pt feel much better. continue Azithyomycin course - HPI History of Present Illness: please refer from my HPI on 08/25/17 as the following: This is a 76-year-old female with PMH of HTN, [place], Heart Murmur, severe COPD with daily 2 L of O2, current cigarette smoker, shortness of breath, hypothyroidism, urinary incontinence, osteoarthritis, who presents to the emergency department with shortness of breath, which appears to be a COPD exacerbation. Pt report she has normally on 2 L of home O2. In EMS pt received nebulizer treatment. Pt's oxygen increase to 3 L. She was then given steroids in ER room, as well as his several nebulizer treatments. Oxygen saturation level approximately has 96% on 2 L when she is lying still in bed, however when she starts to move or attempts to stand up drops to the mid 80s. She becomes short of breath when ambulating. Pt is still smoking cigarette daily. No evidence of pneumonia, CHF or fluid or other acute process on x-ray, moderate hyperinflation consistent with COPD. - HOSPITAL COURSE Hospital Course: pt was admitted for COPD exacerbation and cough with yellow sputum. After pt was treated with Duoneb INH, solu-metro, pt state she feel much better, and ready to d/c. Pt most likely has bronchitis, and treated with Azithyromycin. RT exercise study revealed 91%-94% of SO2 on 2 liter of O2, rest SO2 95% with 2 liter O2. pt was prescribed Azithyromycin and Prednisone wane dosage to home - ALLERGIES Allergies/Adverse Reactions: Allergies Allergy/AdvReac Type Severity Reaction Status Date / Time Penicillins Allergy Unknown unknown Verified 08/25/17 14:40 Sulfa (Sulfonamide Allergy Unknown unknown Verified 08/25/17 14:40 Antibiotics) tape adhesive AdvReac Intermediate tears skin Uncoded 01/22/17 17:05 - MEDICATIONS Home Medications: Ambulatory Orders Medication Instructions Recorded Confirmed Aspirin EC [Ecotrin] 81 mg PO DAILY 04/17/13 08/25/17 Budesonide/Formoterol Fumarate 2 puffs INH BID 04/17/13 08/25/17 [Symbicort 160-4.5 Mcg Inhaler] Furosemide [Lasix] 20 mg PO DAILY 04/17/13 08/25/17 Levothyroxine [Synthroid] 50 mcg PO QDAC 04/17/13 08/25/17 Verapamil ER [Calan SA] 120 mg PO QPM 04/17/13 08/25/17 Atorvastatin Calcium 40 mg PO QPM 02/08/17 08/25/17 Hydrocodone/Acetaminophen 1 each PO Q6H PRN 08/25/17 08/25/17 [Hydrocodone-Acetamin 7.5-325] Metoprolol Succinate 100 mg PO 2100 08/25/17 08/26/17 Azithromycin 250 mg PO DAILY #4 tablet 08/26/17 Ipratropium/Albuterol Sulfate 3 ml IH 5XD 08/26/17 08/26/17 [Iprat-Albut 0.5-3(2.5) mg/3 ml] - PHYSICAL EXAM AT DISCHARGE General Appearance: positive: No acute distress, Alert. negative: Lethargic Eyes Bilateral: positive: Normal inspection, PERRL, No lid inflammation, Conjunctivae nml ENT: positive: ENT inspection nml, Pharynx nml, No signs of dehydration. negative: Purulent nasal drainage, Pharyngeal erythema, Oral lesions Neck: positive: Nml inspection, Thyroid nml, No JVD, Trachea midline. negative : Thyromegaly, Lymphadenopathy (R), Lymphadenopathy (L), Stiff neck, Carotid bruit, Swelling/bruising, Tracheal deviation Respiratory: positive: Chest non-tender, No respiratory distress, Breath sounds nml. negative: Wheezes, Rales, Rhonchi Cardiovascular: positive: Regular rate & rhythm, No murmur, No gallop. negative : Irregularly irregular, Extrasystoles, Tachycardia, Bradycardia, Systolic murmur, Diastolic murmur Peripheral Pulses: positive: 2+ Abdomen: positive: Non-tender, No organomegaly, Nml bowel sounds, No distention. negative: Tenderness, Guarding, Rebound, Abnml bowel sounds Back: positive: Nml inspection. negative: CVA tenderness (R), CVA tenderness (L ) Skin: positive: Color nml, No rash, Warm, Dry. negative: Cyanosis, Diaphoresis , Pallor, Skin rash Extremities: positive: Non-tender, Full ROM, Nml appearance. negative: Calf tenderness, Joint swelling, Deric's sign/cords Neurologic/Psychiatric: positive: Oriented x3, Motor nml, Sensation nml, Mood/ affect nml. negative: Sensory loss, Facial droop, Slurred/abnml speech, Depressed mood/affect - LABS Result Diagrams: 08/26/17 05:05 08/26/17 06:12 - FOLLOW UP Follow Up: May follow up PCP in one week, have pulmonary rehab. Azithyromycin and Prednisone wane dosage were prescribed to pt to home - TIME SPENT Time Spent in Discharge (Minutes): 50
[2017-08-27] MEDS: HYDROcod/ACETAM 7.5 MG/325 MG TABLET PO PRN (11:23)
[2017-08-27 12:13] VITALS: BP 115/48
== END 2017-08-27 12:14 | disposition home or self-care (01) ==
LOC: EDUNIT# → ED 14:35 → OBS 17:52
PROVIDERS: ADMIT Nurse Practitioner Gerontology; ATTEND Nurse Practitioner Gerontology
DX: J44.1 Chronic obstructive pulmonary disease with (acute) exacerbation (principal); J40 Bronchitis, not specified as acute or chronic; I10 Essential (primary) hypertension; I25.2 Old myocardial infarction; E03.9 Hypothyroidism, unspecified; Z79.82 Long term (current) use of aspirin; Z99.81 Dependence on supplemental oxygen; F17.210 Nicotine dependence, cigarettes, uncomplicated
CPT/HCPCS: 36415; 71020; 80053; 83605; 83690; 83735; 83880; 84443; 84484; 85025; 87070; 87077; 87181; 87205; 93005; 94640; 94761; 96372; 96374; 96376; 99284; 99285; A9270; G0378; J1650; J7613; J7620; J7626

== ENCOUNTER 2018-02-07 08:00 | Outpatient (CLI) | payer MEDICARE, OTHER | END 2018-02-07 08:01 | disposition home or self-care (01) | LOC: LAB.WCP 08:00 | PROVIDERS: ATTEND Family Medicine | DX: N39.0 Urinary tract infection, site not specified (principal) | CPT/HCPCS: 87086; 87181 ==

== ENCOUNTER 2018-04-19 08:00 | Outpatient (CLI) | payer MEDICARE, OTHER ==
[2018-04-19 13:34] LABS: HGB - HEMOGLOBIN 12.4 g/dL (12.0-16.0); MEAN CORPUSCULAR HEMOGLOBIN 32.4 pg (27.0-31.0); MEAN CORPUSCULAR HGB CONC 33.8 g/dL (32.0-36.0); MEAN CORPUSCULAR VOLUME 95.8 fL (81.0-99.0); MEAN PLATELET VOLUME 7.7 fL (7.9-10.8); RED BLOOD COUNT 3.81 10^6/uL (4.20-5.40); RED CELL DISTRIBUTION WIDTH 17.6 % (12.0-15.0); WHITE BLOOD COUNT 13.7 x10^3/uL (4.8-10.8)
[2018-04-19 14:00] LABS: CALCIUM 9.5 mg/dL (8.5-10.3); CREATININE 0.7 mg/dL (0.4-1.0)
== END 2018-04-19 08:01 | disposition home or self-care (01) ==
LOC: LAB.WCP 08:00
PROVIDERS: ATTEND Family Medicine
DX: R06.09 Other forms of dyspnea (principal)
CPT/HCPCS: 36415; 80048; 83880; 85027

== ENCOUNTER 2018-05-30 09:20 | Outpatient (CLI) | payer MEDICARE, OTHER | END 2018-05-30 09:21 | disposition home or self-care (01) | LOC: DI 09:20 | PROVIDERS: ATTEND Family Medicine | DX: I25.10 Atherosclerotic heart disease of native coronary artery without angina pectoris (principal); I50.9 Heart failure, unspecified | CPT/HCPCS: 93306 ==

== ENCOUNTER 2018-06-14 20:59 | Outpatient (CLI) | payer MEDICARE, OTHER | END 2018-06-14 21:00 | disposition critical access hospital (66) | LOC: EMS 20:59 | PROVIDERS: ATTEND Surgery | DX: R06.02 Shortness of breath (principal); R07.9 Chest pain, unspecified | CPT/HCPCS: A0425; A0427 ==

== ENCOUNTER 2018-06-14 21:12 | Emergency (ER) | payer MEDICARE, OTHER ==
[2018-06-14] MEDS ORDERED: HYDROcod/ACETAM 7.5 MG/325 MG TABLET PO STA (22:07)
[2018-06-14] MEDS ORDERED: ALBUTEROL NEB 2.5 MG/3 ML INH STA (22:07)
[2018-06-14 22:10] LABS: BASOPHILS # (AUTO) 0.1 10^3/uL (0.0-0.1); BASOPHILS % (AUTO) 0.6 %; EOSINOPHILS % (AUTO) 0.4 %; LYMPHOCYTES % (AUTO) 8.7 %; MEAN CORPUSCULAR HEMOGLOBIN 32.7 pg (27.0-31.0); MEAN CORPUSCULAR HGB CONC 33.3 g/dL (32.0-36.0); MEAN CORPUSCULAR VOLUME 98.2 fL (81.0-99.0); MONOCYTES # (AUTO) 1.3 10^3/uL (0.0-1.0); MONOCYTES % (AUTO) 10.8 %; NEUTROPHILS # (AUTO) 9.2 10^3/uL (1.5-6.6); NEUTROPHILS % (AUTO) 79.5 %; PLT - PLATELET COUNT 402 10^3/uL (130-450); RED BLOOD COUNT 3.34 10^6/uL (4.20-5.40); RED CELL DISTRIBUTION WIDTH 15.4 % (12.0-15.0); WHITE BLOOD COUNT 11.6 x10^3/uL (4.8-10.8)
--- NOTE | 2018-06-14 22:15 | XRAY Report ---
Reason: SOA chest pain Procedure Date: 06/14/2018 Accession Number: [id number] / [id number] Procedure: XR - Chest 2 View X-Ray CPT Code: 19228 FULL RESULT: EXAM: CHEST RADIOGRAPHY EXAM DATE: 06/14/2018 09:32 PM. CLINICAL HISTORY: SOA chest pain. COMPARISON: CHEST 1 VIEW 03/07/2018 10:00 AM. TECHNIQUE: 2 views. FINDINGS: Lungs/Pleura: No focal opacities evident. No pleural effusion. No pneumothorax. Stable hyperinflation. Mediastinum: Heart and mediastinal contours are unremarkable. Other: None. IMPRESSION: Stable hyperinflation. No evidence of acute cardiopulmonary disease. RADIA
[2018-06-14 22:30] LABS: ALBUMIN 3.4 g/dL (3.2-5.5); ALBUMIN/GLOBULIN RATIO 1.3 (1.0-2.2); BILIRUBIN,TOTAL 0.7 mg/dL (0.2-1.0); CALCIUM 9.1 mg/dL (8.5-10.3); CREATININE 0.6 mg/dL (0.4-1.0)
[2018-06-14 23:13] LABS: BILIRUBIN,URINE NEGATIVE (NEGATIVE); GLUCOSE, URINE (UA) NEGATIVE (NEGATIVE); KETONES,URINE (UA) NEGATIVE (NEGATIVE); LEUKOCYTE ESTERASE, URINE TRACE (NEGATIVE); NITRITE,URINE NEGATIVE (NEGATIVE); OCCULT BLOOD,URINE NEGATIVE (NEGATIVE); PH,URINE 5.5 PH (5.0-7.5); PROTEIN,URINE TRACE mg/dL (NEGATIVE); UROBILINOGEN,URINE 0.2 (NORMAL) E.U./dL (NORMAL)
[2018-06-14 23:16] LABS: CLARITY,URINE CLEAR (CLEAR)
[2018-06-14 23:19] LABS: BACTERIA,URINE Moderate /HPF (None Seen); RBC,URINE 0-5 /HPF (0-5); SQUAMOUS EPITHELIAL CELL,UR MOD Squamous (<= Few)
--- NOTE | 2018-06-14 23:42 | ED Physician Documentation ---
History of Present Illness - Stated complaint Stated Complaint: CP/SOA - Chief complaint Chief Complaint: Resp - History obtained from History obtained from: Patient, Friend - History of Present Illness Timing: Chronic - Additonal information Additional information: Patient is a 77 year old female with severe copd, on home oxygen and chronic pain. patient states that she is short of breath, but she is always short of breath. patient states that her concern was the pain in her back. patient states that it has been going on for the last few days. The pain is mainly in the right flank area. Patient had called ems and was treated with a breathing treatment enroute. upon initial evaluation in the emergency department patient stated that her breathing was not unchanged for her but her concern was her back pain. Patient was requesting her pain medications. Review of Systems Constitutional: denies: Fever, Chills Cardiac: reports: Chest pain / pressure Respiratory: reports: Dyspnea, Wheezing GI: denies: Nausea, Vomiting Musculoskeletal: reports: Back pain Neurologic: reports: Generalized weakness. 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: Hysterectomy, Other - Present Medications Home Medications: Ambulatory Orders Medication Instructions Recorded Confirmed Aspirin EC [Ecotrin] 81 mg PO DAILY 04/17/13 08/25/17 Furosemide [Lasix] 20 mg PO DAILY 04/17/13 08/25/17 Levothyroxine [Synthroid] 50 mcg PO QDAC 04/17/13 08/25/17 Verapamil ER [Calan SA] 120 mg PO QPM 04/17/13 08/25/17 Atorvastatin Calcium 40 mg PO QPM 02/08/17 08/25/17 Hydrocodone/Acetaminophen 1 each PO Q6H PRN 08/25/17 08/25/17 [Hydrocodone-Acetamin 7.5-325] Metoprolol Succinate 100 mg PO 2100 08/25/17 08/26/17 Ipratropium/Albuterol Sulfate 3 ml IH 5XD 08/26/17 08/26/17 [Iprat-Albut 0.5-3(2.5) mg/3 ml] Doxycycline Hyclate mg PO 06/14/18 - Allergies Allergies/Adverse Reactions: Allergies Allergy/AdvReac Type Severity Reaction Status Date / Time Penicillins Allergy Unknown unknown Verified 06/14/18 22:05 Sulfa (Sulfonamide Allergy Unknown unknown Verified 06/14/18 22:05 Antibiotics) tape adhesive AdvReac Intermediate tears skin Uncoded 06/14/18 22:05 - Social History Does the pt smoke?: No Smoking Status: Never smoker Does the pt drink ETOH?: Yes Does the pt have substance abuse?: No - Immunizations Immunizations are current?: Yes - POLST POLST Status: Full Code PD ED PE NORMAL - Vitals Vital signs reviewed: Yes - General General: Alert and oriented X 3 - HEENT HEENT: Atraumatic - Abdomen Abdomen: Soft - Derm Derm: Normal color, Warm and dry - Extremities Extremities: No deformity - Neuro Neuro: Alert and oriented X 3, No motor deficit, Normal speech Eye Opening: Spontaneous PD ED PE EXPANDED - Respiratory Respiratory: Accessory mm use, Wheezing, Right upper lobe, Right middle lobe, Right lower lobe, Left upper lobe, Left lower lobe - Back Back: CVA TTP right Results - Vitals Vitals: Vital Signs - 24 hr 06/14/18 06/14/18 06/14/18 21:14 22:11 22:30 Temperature 36.2 C L Heart Rate 100 94 94 Respiratory 24 23 19 Rate Blood Pressure 167/85 H 149/94 H O2 Saturation 95 65 L 06/14/18 23:09 Temperature Heart Rate 89 Respiratory 15 Rate Blood Pressure 147/91 H O2 Saturation 97 Oxygen O2 Source Nasal cannula Oxygen Flow Rate 2 - EKG (time done) 2118 Rate: Rate (enter#) (98) Rhythm: NSR, SVT Intervals: Normal TN Other comments: Other comments (nsr with lots of artifact) Computer interpretation: Disagree with computer - Labs Labs: Laboratory Tests 06/14/18 06/14/18 06/14/18 22:00 22:00 22:00 WBC 11.6 H RBC 3.34 L Hgb 11.0 L Hct 32.9 L MCV 98.2 MCH 32.7 H MCHC 33.3 RDW 15.4 H Plt Count 402 MPV 7.0 L Neut # (Auto) 9.2 H Lymph # (Auto) 1.0 L [place] # (Auto) 1.3 H Eos # (Auto) 0.0 Baso # (Auto) 0.1 Absolute Nucleated RBC 0.00 Nucleated RBC % 0.0 Sodium 133 L Potassium 4.0 Chloride 90 L Carbon Dioxide 33 H Anion Gap 10.0 BUN 16 Creatinine 0.6 Estimated GFR (MDRD) 97 Glucose 80 Calcium 9.1 Total Bilirubin 0.7 AST 34 ALT 25 Alkaline Phosphatase 83 Troponin I < 0.04 B-Natriuretic Peptide Total Protein 6.0 L Albumin 3.4 Globulin 2.6 Albumin/Globulin Ratio 1.3 Lipase 25 Urine Color Urine Clarity Urine pH Ur Specific [place] Urine Protein Urine Glucose (UA) Urine Ketones Urine Occult Blood Urine Nitrite Urine Bilirubin Urine Urobilinogen Ur Leukocyte Esterase Urine RBC Urine WBC Ur Squamous Epith Cells Urine Bacteria Ur Microscopic Review Urine Culture Comments 06/14/18 06/14/18 22:00 22:54 WBC RBC Hgb Hct MCV MCH MCHC RDW Plt Count MPV Neut # (Auto) Lymph # (Auto) [place] # (Auto) Eos # (Auto) Baso # (Auto) Absolute Nucleated RBC Nucleated RBC % Sodium Potassium Chloride Carbon Dioxide Anion Gap BUN Creatinine Estimated GFR (MDRD) Glucose Calcium Total Bilirubin AST ALT Alkaline Phosphatase Troponin I B-Natriuretic Peptide 285 H Total Protein Albumin Globulin Albumin/Globulin Ratio Lipase Urine Color YELLOW Urine Clarity CLEAR Urine pH 5.5 Ur Specific [place] 1.025 Urine Protein TRACE Urine Glucose (UA) NEGATIVE Urine Ketones NEGATIVE Urine Occult Blood NEGATIVE Urine Nitrite NEGATIVE Urine Bilirubin NEGATIVE Urine Urobilinogen 0.2 (NORMAL) Ur Leukocyte Esterase TRACE H Urine RBC 0-5 Urine WBC 6-10 H Ur Squamous Epith Cells MOD Squamous H Urine Bacteria Moderate H Ur Microscopic Review INDICATED Urine Culture Comments NOT INDICATED - Rads (name of study) chest x-ray Radiology: Final report received (hyperinflation no acute infiltrate) PD MEDICAL DECISION MAKING - ED course Complexity details: reviewed old records, reviewed results, re-evaluated patient, considered differential, d/w patient ED course: Patient was seen and examined at bedside. ekg was performed which showed artifact but no acute st segment changes. patient was treated with an additional nebulizer treatment. IV access was gained and labs were drawn. chest x-ray was performed and showed hyperinflation but no other acute changes. While talking with the patient it seemed her greatest concern was her back pain. Patient then reported that she was on day 2 of a antibiotics for a urinary tract infection. Urine was collected and was indeed infected. patient stated that her pain started around when she was diagnosed with a uti. Patient was being treated with doxycycline. While patient was not a well women, there were no acute changes in her condition. She was afebrile and able to tolerate PO. Patient stated that she wanted to go home and was stable for discharge with outpatient follow up. - Sepsis Event Vital Signs: Vital Signs - 24 hr 06/14/18 06/14/18 06/14/18 21:14 22:11 22:30 Temperature 36.2 C L Heart Rate 100 94 94 Respiratory 24 23 19 Rate Blood Pressure 167/85 H 149/94 H O2 Saturation 95 65 L 06/14/18 23:09 Temperature Heart Rate 89 Respiratory 15 Rate Blood Pressure 147/91 H O2 Saturation 97 Oxygen O2 Source Nasal cannula Oxygen Flow Rate 2 Departure - Departure Disposition: 01 Home, Self Care Clinical Impression: Urinary tract infection Condition: Poor Instructions: ED UTI Cystitis Female Follow-Up: Cinthya Huggins DO [Primary Care Provider] - Within 3 Days Comments: Your back pain is likely secondary to your kidney infection. You should continue with the antibiotics as prescribed and you will be called if the bacteria is not responding to them. You should follow up with your doctor for routine care and continue with your home medications. You should keep your feet elevated throughout the day and try compression stockings. You may return to the emergency department at any time for new, worsening or uncontrollable symptoms. Discharge Date/Time: 06/15/18 00:01
[2018-06-14 23:52] VITALS: BP 151/90
== END 2018-06-15 00:01 | disposition home or self-care (01) ==
LOC: EDUNIT# → ED 21:12
DX: N39.0 Urinary tract infection, site not specified (principal); M54.9 Dorsalgia, unspecified; I10 Essential (primary) hypertension; I25.2 Old myocardial infarction; J44.9 Chronic obstructive pulmonary disease, unspecified
CPT/HCPCS: 36415; 71046; 80053; 81001; 83690; 83880; 84484; 85025; 93005; 94640; 99284; A9270; 81003; 87086

== ENCOUNTER 2018-06-18 08:23 | Outpatient (CLI) | payer MEDICARE, OTHER | END 2018-06-18 08:24 | disposition critical access hospital (66) | LOC: EMS 08:23 | PROVIDERS: ATTEND Surgery | DX: R06.02 Shortness of breath (principal); R07.9 Chest pain, unspecified | CPT/HCPCS: A0425; A0427 ==

== ENCOUNTER 2018-06-18 08:40 | Emergency (ER) | payer MEDICARE, OTHER ==
[2018-06-18] MEDS ORDERED: methylPREDNISolone SUCCINATE 125 MG/2 ML VIAL IVP STA ×2 (08:57→15:31)
--- NOTE | 2018-06-18 09:02 | ED Physician Documentation ---
PD HPI DYSPNEA - Stated complaint Stated Complaint: CHEST PX - Chief complaint Chief Complaint: Resp - History obtained from History obtained from: Patient, EMS - History of Present Illness Timing - onset: Today Timing - onset during: Rest Timing - duration: Hours Timing - details: Gradual onset, Still present Inciting event(s): Other (recent illness) Worsened by: Exertion, Coughing Associated symptoms: Cough, Wheezing, Chest pain / discomfort. No: Fever Similar symptoms before: Diagnosis (exacerbation of COPD) Recently seen: Emergency Dept - Additional information Additional information: 77-year-old female with a history of oxygen dependant COPD was treated for urinary tract infection about 10 days ago has developed some flank pain and was diagnosed with pyelonephritis and she continues to have this left flank pain and this morning is having a lot of trouble breathing. She does state that she has COPD and she is oxygen dependent at home and is on a maintenance dose of prednisone of about 10 mg. She states today that she feels that she has an exacerbation of her COPD and needs to come in to the hospital for steroids and antibiotics and breathing treatments. She states in the past this is helped with her condition when she feels this way. She was last on a taper of prednisone last month. Review of Systems Constitutional: reports: Myalgias, Fatigue. denies: Fever Eyes: denies: Decreased vision Ears: denies: Ear pain Nose: denies: Rhinorrhea / runny nose, Congestion Throat: denies: Sore throat Cardiac: reports: Chest pain / pressure, Pedal edema. denies: Palpitations Respiratory: reports: Dyspnea, Cough, Wheezing GI: reports: Nausea. denies: Abdominal Pain, Vomiting : denies: Dysuria, Frequency Skin: denies: Rash Musculoskeletal: reports: Back pain. 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, Other - Present Medications Home Medications: Ambulatory Orders Medication Instructions Recorded Confirmed Aspirin EC [Ecotrin] 81 mg PO DAILY 04/17/13 06/18/18 Furosemide [Lasix] 60 - 80 mg PO DAILY 04/17/13 06/18/18 Levothyroxine [Synthroid] 50 mcg PO QDAC 04/17/13 06/18/18 Verapamil ER [Calan SA] 120 mg PO QPM 04/17/13 08/25/17 Atorvastatin Calcium 40 mg PO QPM 02/08/17 06/18/18 Hydrocodone/Acetaminophen 1 each PO Q5H PRN 08/25/17 06/18/18 [Hydrocodone-Acetamin 7.5-325] Metoprolol Succinate 100 mg PO 2100 08/25/17 06/18/18 Ipratropium/Albuterol Sulfate 3 ml IH QID 08/26/17 06/18/18 [Iprat-Albut 0.5-3(2.5) mg/3 ml] Alendronate [Fosamax] 70 mg PO Q7D 06/18/18 06/18/18 Fluticasone [Flonase] 1 sprays BO BID 06/18/18 06/18/18 Potassium Chloride [K-Dur] 20 meq PO DAILY 06/18/18 06/18/18 predniSONE [Deltasone] 10 mg PO DAILY #26 tablet 06/18/18 - Allergies Allergies/Adverse Reactions: Allergies Allergy/AdvReac Type Severity Reaction Status Date / Time Penicillins Allergy Unknown unknown Verified 06/18/18 08:46 Sulfa (Sulfonamide Allergy Unknown unknown Verified 06/18/18 08:46 Antibiotics) tape adhesive AdvReac Intermediate tears skin Uncoded 06/18/18 08:46 - Social History Does the pt smoke?: No Smoking Status: Never smoker Does the pt drink ETOH?: Yes Does the pt have substance abuse?: No - Immunizations Immunizations are current?: Yes - POLST POLST Status: Full Code PD ED PE NORMAL - Vitals Vital signs reviewed: Yes (hypertensive ) - General General: Alert and oriented X 3, Well developed/nourished, Other (tachypneic at rest ) - HEENT HEENT: Atraumatic, PERRL, EOMI - Neck Neck: Supple, no meningeal sign - Cardiac Cardiac: No murmur, Other (tachy to 110) - Respiratory Respiratory: Other (tachpneic with marked reduction in air movement. ) - Abdomen Abdomen: Soft, Non tender - Back Back: No CVA TTP, No spinal TTP - Derm Derm: Normal color, Warm and dry, No rash - Extremities Extremities: No deformity, Other (There is bilateral edema and post inflamatory hyperpigmentation present. ) - Neuro Neuro: Alert and oriented X 3, buildings painter 2-12 intact, No motor deficit, No sensory deficit, Normal speech Eye Opening: Spontaneous Motor: Obeys Commands Verbal: Oriented GCS Score: 15 - Psych Psych: Normal mood, Normal affect Results - Vitals Vitals: Vital Signs - 24 hr 06/18/18 08:39 Temperature 36.2 C L Heart Rate 84 Respiratory 18 Rate Blood Pressure 149/65 H O2 Saturation 97 Oxygen O2 Source Nasal cannula Oxygen Flow Rate 2 - EKG (time done) 0914 Rate: Rate (enter#) (78) Ischemia: Non specific changes (minimal ST elevation II, III and avF) Compare to prior EKG: Unchanged from prior EKG (SPT 03-20-2016 no significant change) Computer interpretation: Agree with computer - Rads (name of study) 2 veiw chest Radiology: Prelim report reviewed (Impression: No radiographic apparent acute abnormality in the chest. No significant change from prior.), EMP read indepedently, See rad report PD MEDICAL DECISION MAKING - ED course Complexity details: reviewed old records, reviewed results, re-evaluated patient, considered differential, d/w patient ED course: 77 y/o female with history of COPD has a flare and here in the ED she is improved with the duo-neb given by medics and she is administered solumedrol. She feels like she needs to be in the hospital. The hospitalist is contacted in the case 11:45 and recommends further treatment prior to decision to admit. The patient is given a second duo-neb treatment and an albuterol treatment and she is road tested in the ED. She is able to get herself out of the bed and ambulate around the end of the bed with 2LN/C oxygen without desaturation. She is given a second dose of solumedrol and we will place her on a course of prednisone. The director of social media marketing has been consulted. - Sepsis Event Vital Signs: Vital Signs - 24 hr 06/18/18 08:39 Temperature 36.2 C L Heart Rate 84 Respiratory 18 Rate Blood Pressure 149/65 H O2 Saturation 97 Oxygen O2 Source Nasal cannula Oxygen Flow Rate 2 Departure - Departure Disposition: 01 Home, Self Care Clinical Impression: COPD exacerbation Instructions: ED COPD Flare Follow-Up: Cinthya Huggins DO [Primary Care Provider] - Prescriptions: predniSONE [Deltasone] 10 mg PO DAILY #26 tablet
[2018-06-18 09:24] LABS: BASOPHILS # (AUTO) 0.1 10^3/uL (0.0-0.1); BASOPHILS % (AUTO) 0.4 %; EOSINOPHILS % (AUTO) 0.2 %; HGB - HEMOGLOBIN 11.2 g/dL (12.0-16.0); LYMPHOCYTES % (AUTO) 6.6 %; MEAN CORPUSCULAR HEMOGLOBIN 33.3 pg (27.0-31.0); MEAN CORPUSCULAR VOLUME 97.8 fL (81.0-99.0); MONOCYTES # (AUTO) 1.5 10^3/uL (0.0-1.0); MONOCYTES % (AUTO) 9.7 %; NEUTROPHILS # (AUTO) 12.7 10^3/uL (1.5-6.6); NEUTROPHILS % (AUTO) 83.1 %; PLT - PLATELET COUNT 527 10^3/uL (130-450); RED BLOOD COUNT 3.37 10^6/uL (4.20-5.40); RED CELL DISTRIBUTION WIDTH 15.6 % (12.0-15.0); WHITE BLOOD COUNT 15.3 x10^3/uL (4.8-10.8)
[2018-06-18 09:32] LABS: ALBUMIN 3.5 g/dL (3.2-5.5); ALBUMIN/GLOBULIN RATIO 1.2 (1.0-2.2); BILIRUBIN,TOTAL 0.9 mg/dL (0.2-1.0); CALCIUM 9.3 mg/dL (8.5-10.3); CREATININE 0.6 mg/dL (0.4-1.0); TOTAL PROTEIN 6.5 g/dL (6.7-8.2)
--- NOTE | 2018-06-18 09:52 | XRAY Report ---
Reason: diminished breath sounds and left chest pain Procedure Date: 06/18/2018 Accession Number: [id number] / [id number] Procedure: XR - Chest 2 View X-Ray CPT Code: 42522 FULL RESULT: EXAM: CHEST RADIOGRAPHY EXAM DATE: 06/18/2018 09:35 AM. CLINICAL HISTORY: Diminished breath sounds and left chest pain. COMPARISON: CHEST 2 VIEW 06/14/2018 9:32 PM. TECHNIQUE: 2 views. FINDINGS: Lungs/Pleura: Bilateral interstitial opacities and hyperinflation suggesting COPD. No focal consolidation evident. No pneumothorax or pleural effusion. Mediastinum: Heart and mediastinal contours are unremarkable. Aortic atherosclerosis. Other: None. IMPRESSION: No radiographically apparent acute abnormality in the chest. No significant change from prior. RADIA
[2018-06-18 10:46] LABS: BILIRUBIN,URINE NEGATIVE (NEGATIVE); GLUCOSE, URINE (UA) NEGATIVE (NEGATIVE); KETONES,URINE (UA) TRACE mg/dL (NEGATIVE); LEUKOCYTE ESTERASE, URINE TRACE (NEGATIVE); NITRITE,URINE NEGATIVE (NEGATIVE); OCCULT BLOOD,URINE TRACE-INTA (NEGATIVE); PROTEIN,URINE TRACE mg/dL (NEGATIVE); UROBILINOGEN,URINE 0.2 (NORMAL) E.U./dL (NORMAL)
[2018-06-18 10:49] LABS: CLARITY,URINE HAZY (CLEAR)
[2018-06-18 11:08] LABS: BACTERIA,URINE Rare /HPF (None Seen); RBC,URINE 0-5 /HPF (0-5); SQUAMOUS EPITHELIAL CELL,UR FEW Squamous (<= Few)
[2018-06-18] MEDS ORDERED: IPRATROPIUM/ALBUTEROL 3 ML NEB INH STA (12:48)
[2018-06-18] MEDS ORDERED: ALBUTEROL NEB 2.5 MG/3 ML INH STA (14:23)
[2018-06-18] MEDS ORDERED: HYDROcod/ACETAM 7.5 MG/325 MG TABLET PO STA (15:25)
[2018-06-18] MEDS ORDERED: NICOTINE 14 MG PATCH TOP STA (15:30)
[2018-06-18 16:59] VITALS: BP 142/69
== END 2018-06-18 16:45 | disposition home or self-care (01) ==
LOC: ED 08:40
DX: J44.1 Chronic obstructive pulmonary disease with (acute) exacerbation (principal); I10 Essential (primary) hypertension; I25.2 Old myocardial infarction; Z99.81 Dependence on supplemental oxygen
CPT/HCPCS: 36415; 71046; 80053; 81001; 83690; 84484; 85025; 87086; 93005; 94640; 96374; 99284; A9270; 81003

== ENCOUNTER 2018-06-21 08:32 | Outpatient (CLI) | payer MEDICARE, OTHER | END 2018-06-21 08:33 | disposition critical access hospital (66) | LOC: EMS 08:32 | PROVIDERS: ATTEND Surgery | DX: R06.00 Dyspnea, unspecified (principal); R11.0 Nausea | CPT/HCPCS: A0425; A0429 ==

== ENCOUNTER 2018-06-21 08:49 | Inpatient (IN) | payer MEDICARE, OTHER ==
[2018-06-21 09:17] LABS: BASOPHILS # (AUTO) 0.1 10^3/uL (0.0-0.1); BASOPHILS % (AUTO) 0.5 %; HGB - HEMOGLOBIN 11.3 g/dL (12.0-16.0); LYMPHOCYTES # (AUTO) 0.6 10^3/uL (1.5-3.5); LYMPHOCYTES % (AUTO) 2.4 %; MEAN CORPUSCULAR HEMOGLOBIN 33.6 pg (27.0-31.0); MEAN CORPUSCULAR HGB CONC 34.7 g/dL (32.0-36.0); MEAN CORPUSCULAR VOLUME 96.8 fL (81.0-99.0); MEAN PLATELET VOLUME 6.4 fL (7.9-10.8); MONOCYTES % (AUTO) 8.3 %; NEUTROPHILS # (AUTO) 21.7 10^3/uL (1.5-6.6); NEUTROPHILS % (AUTO) 88.8 %; PLT - PLATELET COUNT 567 10^3/uL (130-450); RED BLOOD COUNT 3.38 10^6/uL (4.20-5.40); RED CELL DISTRIBUTION WIDTH 15.4 % (12.0-15.0); WHITE BLOOD COUNT 24.4 x10^3/uL (4.8-10.8)
[2018-06-21 09:32] LABS: PLATELET MORPHOLOGY RARE GIANT PLATELETS (NORMAL)
[2018-06-21 09:43] LABS: ALBUMIN 3.5 g/dL (3.2-5.5); ALBUMIN/GLOBULIN RATIO 1.2 (1.0-2.2); BILIRUBIN,TOTAL 0.8 mg/dL (0.2-1.0); CREATININE 0.8 mg/dL (0.4-1.0); TOTAL PROTEIN 6.5 g/dL (6.7-8.2)
[2018-06-21] MEDS ORDERED: IPRATROPIUM/ALBUTEROL 3 ML NEB INH STA (09:48)
--- NOTE | 2018-06-21 10:05 | XRAY Report ---
Reason: sob Procedure Date: 06/21/2018 Accession Number: [id number] / [id number] Procedure: XR - Chest 2 View X-Ray CPT Code: 36825 FULL RESULT: EXAM: CHEST RADIOGRAPHY EXAM DATE: 06/21/2018 09:42 AM. CLINICAL HISTORY: Shortness of breath. COMPARISON: CHEST 2 VIEW 06/18/2018 9:10 AM. TECHNIQUE: 2 views. FINDINGS: Lungs/Pleura: No focal opacities evident. No pleural effusion. No pneumothorax. Increased lung volumes with flattened diaphragms, stable. Mediastinum: Heart and mediastinal contours are unremarkable. Other: None. IMPRESSION: Redemonstration of hyperinflated lungs suggestive of obstructive lung disease without acute cardiopulmonary abnormality. RADIA
[2018-06-21] MEDS ORDERED: HYDROcod/ACETAM 5/325 MG TABLET PO STA (10:37)
[2018-06-21] MEDS ORDERED: SODIUM BICARBONATE ABBOJECT 50 MEQ/50 ML SYRINGE IVP STA (11:09)
[2018-06-21] MEDS ORDERED: DEXTROSE 50% ABBOJECT 25 GM/50 ML SYRINGE IVP STA (11:12)
[2018-06-21] MEDS ORDERED: INSULIN REGULAR HUMAN 100 UNIT/1 ML 10 ML MDV IVP STA (11:12)
[2018-06-21 11:13] LABS: ABG PH 7.33 (7.35-7.45); ABG PO2 66 mmHg (80-100)
[2018-06-21] MEDS ORDERED: ALBUTEROL NEB 2.5 MG/3 ML INH STA (11:13)
[2018-06-21 11:14] LABS: ABG BASE EXCESS 4.3 mmol/L (-2.0-3.0); ABG HCO3 31.8 mmol/L (22.0-26.0); ABG OXYGEN SATURATION 91 % (94-98); ABG TCO2 33.7 MMOL/L (21.0-29.0); ALLEN TEST POSITIVE
[2018-06-21 11:16] LABS: ABG PCO2 62 mmHg (34-45)
[2018-06-21] MEDS ORDERED: ALBUTEROL SULF 0.5% 20ML SOLUTION INH STA (11:21)
[2018-06-21] MEDS ORDERED: SODIUM CHLORIDE INHALATION 3 ML NEB INH STA (11:23)
[2018-06-21] MEDS ORDERED: IOPAMIDOL-300 100 ML VIAL ONE (11:24)
--- NOTE | 2018-06-21 12:15 | CT Report ---
Reason: DYPSNEA, +DDIMER Procedure Date: 06/21/2018 Accession Number: [id number] / [id number] Procedure: CT - Chest Angio (PE) CPT Code: FULL RESULT: EXAM: CT ANGIOGRAM CHEST EXAM DATE: 06/21/2018 11:47 AM. CLINICAL HISTORY: Dyspnea, positive D-dimer. COMPARISON: CHEST W/O 10/08/2013 11:28 AM. TECHNIQUE: Routine helical imaging was performed through the chest in the pulmonary arterial phase. IV Contrast: ISOVUE 300 80 mL. Reconstructions: Coronal 3-D MIP reconstructions.Sagittal and coronal. In accordance with CT protocol optimization, one or more of the following dose reduction techniques were utilized for this exam: automated exposure control, adjustment of mA and/or KV based on patient size, or use of iterative reconstructive technique. FINDINGS: Pulmonary Arteries: Diagnostic quality: Adequate through the segmental arteries. No evidence for acute or chronic pulmonary emboli. RV/LV is within normal limits. There is no interventricular septal bowing. There is no reflux of contrast material in the IVC. Lungs/Pleura: Evaluation is limited by motion artifact. Within these limitations, no suspicious nodule, consolidation or other acute airspace disease. There are scant suspected emphysematous changes. Pulmonary changes related to an osteophyte is seen in the right lower lobe adjacent to the spine. Mediastinum: Mild aortic and coronary atherosclerosis. No cardiac enlargement or adenopathy. Thoracic Aorta: Unremarkable. Upper Abdomen: Unremarkable. Other: None. IMPRESSION: No PE. RADIA
--- NOTE | 2018-06-21 12:36 | ED Physician Documentation ---
PD HPI DYSPNEA - Stated complaint Stated Complaint: SOA - Chief complaint Chief Complaint: Resp - History obtained from History obtained from: Patient - History of Present Illness Timing - onset: How many weeks ago, Chronic Timing - onset during: Exertion Timing - duration: Weeks (1) Timing - details: Gradual onset, Still present in ED Pain level max: 0 Pain level now: 0 (Pt states hx of COPD and continues to smoke 0.5 pack per day. Stated she was in the E.R. a week ago and 3 days ago for the same complaint. States this morning her shortness of breath got worse. She took her inhaler without improvement and her oxygen 2l/nc were not helping.) Review of Systems Ten Systems: 10 systems reviewed and negative Constitutional: reports: Chills. denies: Fever, Fatigue Nose: denies: Rhinorrhea / runny nose, Congestion Throat: denies: Sore throat Cardiac: denies: Chest pain / pressure Respiratory: reports: Dyspnea, Cough, Wheezing. 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, Other - Present Medications Home Medications: Ambulatory Orders Medication Instructions Recorded Confirmed RX: Aspirin EC [Ecotrin] 81 mg PO DAILY 04/17/13 06/21/18 RX: Furosemide [Lasix] 40 mg PO DAILY 04/17/13 06/21/18 RX: Levothyroxine [Synthroid] 50 mcg PO QDAC 04/17/13 06/21/18 RX: Verapamil ER [Calan SA] 120 mg PO QPM 04/17/13 06/21/18 RX: Atorvastatin Calcium 40 mg PO QPM 02/08/17 06/21/18 RX: Hydrocodone/Acetaminophen 1 each PO Q5H PRN 08/25/17 06/21/18 [Hydrocodone-Acetamin 7.5-325] RX: Metoprolol Succinate 100 mg PO 2100 08/25/17 06/21/18 RX: Ipratropium/Albuterol Sulfate 3 ml IH QID 08/26/17 06/21/18 [Iprat-Albut 0.5-3(2.5) mg/3 ml] Alendronate [Fosamax] 70 mg PO Q7D 06/18/18 06/21/18 Fluticasone [Flonase] 1 sprays BO BID 06/18/18 06/21/18 Potassium Chloride [K-Dur] 20 meq PO DAILY 06/18/18 06/21/18 RX: predniSONE [Deltasone] 10 mg PO DAILY #26 tablet 06/18/18 06/21/18 RX: Budesonide/Formoterol Fumarate 2 puffs INH BID 06/21/18 06/21/18 [Symbicort 160-4.5 Mcg Inhaler] - Allergies Allergies/Adverse Reactions: Allergies Allergy/AdvReac Type Severity Reaction Status Date / Time Penicillins Allergy Unknown unknown Verified 06/21/18 08:57 Sulfa (Sulfonamide Allergy Unknown unknown Verified 06/21/18 08:57 Antibiotics) tape adhesive AdvReac Intermediate tears skin Uncoded 06/21/18 08:57 - Living Situation Living Situation: reports: Alone Living Arrangement: reports: At home - Social History Does the pt smoke?: Yes Smoking Status: Current every day smoker (0.5 ppd for 50 years) Does the pt drink ETOH?: Yes Does the pt have substance abuse?: No - Immunizations Immunizations are current?: Yes - POLST POLST Status: Full Code PD ED PE NORMAL - Vitals Vital signs reviewed: Yes - General General: Alert and oriented X 3, No acute distress, Well developed/nourished - HEENT HEENT: Moist mucous membranes - Neck Neck: Supple, no meningeal sign - Cardiac Cardiac: RRR, No murmur - Respiratory Respiratory: No respiratory distress, Other (decreased breath sounds bilaterally; +mild wheezing) - Abdomen Abdomen: Normal bowel sounds, Soft, Non tender, Non distended - Derm Derm: Warm and dry - Extremities Extremities: No deformity, No edema - Neuro Neuro: Alert and oriented X 3 - Psych Psych: Normal mood, Normal affect Results - Vitals Vitals: Vital Signs - 24 hr 06/21/18 06/21/18 06/21/18 08:49 10:30 10:41 Temperature 36.6 C Heart Rate 81 78 73 Respiratory 16 11 L 17 Rate Blood Pressure 163/80 H 144/80 H O2 Saturation 89 L 98 06/21/18 11:50 Temperature Heart Rate 81 Respiratory 17 Rate Blood Pressure 132/50 H O2 Saturation 93 Oxygen O2 Source Nasal cannula Oxygen Flow Rate 4 - EKG (time done) 0947 Rate: Rate (enter#) (75) Rhythm: NSR Laura: Normal Intervals: Normal [place] QRS: Normal Ischemia: Normal ST segments - Labs Labs: Laboratory Tests 06/21/18 06/21/18 06/21/18 09:10 09:10 09:10 WBC 24.4 H RBC 3.38 L Hgb 11.3 L Hct 32.7 L MCV 96.8 MCH 33.6 H MCHC 34.7 RDW 15.4 H Plt Count 567 H MPV 6.4 L Neut # (Auto) 21.7 H Lymph # (Auto) 0.6 L [place] # (Auto) 2.0 H Eos # (Auto) 0.0 Baso # (Auto) 0.1 Absolute Nucleated RBC 0.00 Nucleated RBC % 0.0 Manual Slide Review Indicated Platelet Morphology RARE GIANT PLATELETS D-Dimer Bld Gas Analysis Time Sample Site ABG pH ABG pCO2 ABG pO2 ABG HCO3 ABG Total CO2 ABG O2 Saturation ABG Oximetry Spot Check ABG Base Excess [place]on Test O2 Delivery Device O2 Liters/Min Sodium 123 L Potassium 6.3 H* Chloride 82 L Carbon Dioxide 33 H Anion Gap 8.0 BUN 30 H Creatinine 0.8 Estimated GFR (MDRD) 69 L Glucose 77 Calcium 9.0 Total Bilirubin 0.8 AST 56 H ALT 33 Alkaline Phosphatase 92 Troponin I < 0.04 B-Natriuretic Peptide Total Protein 6.5 L Albumin 3.5 Globulin 3.0 Albumin/Globulin Ratio 1.2 Lipase 26 06/21/18 06/21/18 06/21/18 09:10 09:10 10:01 WBC RBC Hgb Hct MCV MCH MCHC RDW Plt Count MPV Neut # (Auto) Lymph # (Auto) [place] # (Auto) Eos # (Auto) Baso # (Auto) Absolute Nucleated RBC Nucleated RBC % Manual Slide Review Platelet Morphology D-Dimer 350.2 H Bld Gas Analysis Time Sample Site ABG pH ABG pCO2 ABG pO2 ABG HCO3 ABG Total CO2 ABG O2 Saturation ABG Oximetry Spot Check ABG Base Excess Talon Test O2 Delivery Device O2 Liters/Min Sodium Potassium 6.3 H* Chloride Carbon Dioxide Anion Gap BUN Creatinine Estimated GFR (MDRD) Glucose Calcium Total Bilirubin AST ALT Alkaline Phosphatase Troponin I B-Natriuretic Peptide 406 H Total Protein Albumin Globulin Albumin/Globulin Ratio Lipase 06/21/18 11:00 WBC RBC Hgb Hct MCV MCH MCHC RDW Plt Count MPV Neut # (Auto) Lymph # (Auto) [place] # (Auto) Eos # (Auto) Baso # (Auto) Absolute Nucleated RBC Nucleated RBC % Manual Slide Review Platelet Morphology D-Dimer Bld Gas Analysis Time 1101 Sample Site RIGHT RADIAL ABG pH 7.33 L ABG pCO2 62 H* ABG pO2 66 L ABG HCO3 31.8 H ABG Total CO2 33.7 H ABG O2 Saturation 91 L ABG Oximetry Spot Check 100 ABG Base Excess 4.3 H [place] Test POSITIVE O2 Delivery Device NASAL CANNULA O2 Liters/Min 2.00 Sodium Potassium Chloride Carbon Dioxide Anion Gap BUN Creatinine Estimated GFR (MDRD) Glucose Calcium Total Bilirubin AST ALT Alkaline Phosphatase Troponin I B-Natriuretic Peptide Total Protein Albumin Globulin Albumin/Globulin Ratio Lipase PD MEDICAL DECISION MAKING - ED course Complexity details: reviewed results, re-evaluated patient (1038 States feeling better with neb. Informed of test results. Agreed to CTA chest scan. [address] results. Denies chest pain/SOB. Pt agreed to admission), considered differential (copd exacerbation, pneumonia, P.E., ACS), d/w patient, other (1228 Case discussed in details with hospitalist Dr. osei. She will admit to full inpatient. She will order pt's steroids.) - Sepsis Event Vital Signs: Vital Signs - 24 hr 06/21/18 06/21/18 06/21/18 08:49 10:30 10:41 Temperature 36.6 C Heart Rate 81 78 73 Respiratory 16 11 L 17 Rate Blood Pressure 163/80 H 144/80 H O2 Saturation 89 L 98 06/21/18 11:50 Temperature Heart Rate 81 Respiratory 17 Rate Blood Pressure 132/50 H O2 Saturation 93 Oxygen O2 Source Nasal cannula Oxygen Flow Rate 4 Departure - Departure Disposition: 66 [facility] DC/Xfer Clinical Impression: Hyperkalemia, Moderate COPD (chronic obstructive pulmonary disease), Hyponatremia, Leukocytosis Condition: Fair Discharge Date/Time: 06/21/18 13:55
--- NOTE | 2018-06-21 12:57 | HISTORY & PHYSICAL EXAMINATION ---
Chief Complaint - Chief Complaint Chief Complaint: SOB History of Present Illness - Admitted From Admitted From:: ED - History Obtained From Records Reviewed: yes History obtained from: chart review, centriticy, patient Exam Limitations: shortness of breath - History of Present Illness HPI Comment/Other: Shantal Slaughter is a 77-year old female with a past medical history of hypertension, [place]-coronary stent in 2016, CAD, murmur, bilateral cataracts, COPD, shortness of breath, oxygen dependent, tobacco dependence, hypothyroidism, urinary incontinence, recent UTI, and osteoarthritis. The patient has been to this ED at least 3 times in the past several days with similar symptoms of activity intolerance, increased shortness of breath, and lethargy. She has been seeing her PCP at least monthly for the past 6-8 months due to her worsening COPD. She has recently been treated with oral prednisone and doxycycline. She finished treatment for a UTI in early February in which Levofloxacin was used. She denies current chest pain, nausea, vomiting, rashes, syncope, recent falls, or orthopnea. She states that her last cigarette was just this morning and is not interested in quitting. She states that she uses 2L nasal cannula at home, and has increased the flow rate to 3L lately, but has continued to have difficulty breathing. She states that she lives alone, but has not had the care that she needs regarding meal preparation, ADLs and basic house keeping. Labs show an elevated potassium at 6.3, a low sodium of 123, an elevated CO2 of 33, an elevated BUN of 30, a negative troponin, and an elevated BNP of 406. CBC labs showed an elevated WBC count of 24.4, anemia with a hemoglobin of 11.3, and a hematocrit of 32.7. Imaging showed no PE which was completed due to an elevated d-dimer, and the chest x-ray showed increased lung volumes with flattened diaphragms consistent with this COPD exacerbation. She will be admitted to inpatient for further symptom control and treatment of her COPD exacerbation. History - Past Medical History Cardiovascular: reports: Congestive heart failure, Hypertension, High cholesterol, Coronary artery disease, Peripheral Vascular Disease, [place], Murmur Respiratory: reports: COPD, Emphysema, Shortness of breath Neuro: reports: Headaches, Peripheral neuropathy Endocrine/Autoimmune: reports: HyPOthyroidism GI: reports: None HARVEST FIELD TICKETER: reports: None : reports: Incontinence, Nocturia, Frequency HEENT: reports: Chronic sinusitis, Chronic hearing loss Psych: reports: Depression, Anxiety Musculoskeletal: reports: Osteoarthritis, Fatigue, Other Derm: reports: None MRSA Hx?: No - Past Surgical History General: reports: Appendectomy, Colonoscopy Ortho: reports: Other (left ankle ORIF in 2013) /HARVEST FIELD TICKETER: reports: Hysterectomy, Other Cardiovascular: reports: Coronary stent, Cardiac catheterization, Angioplasty HEENT: reports: Cataracts - Family & Social History Family History: Mother: , Father: Living arrangement: At home Living Situation: Alone Social History Notes: 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 She lives alone, is dependent on oxygen and has been declining. She has a dog named Lena. She has no children and is not . She denies alcohol or illicit drug use. She admits to have a current tobacco dependence, and started at age 14. She is down to 1/2 PPD. - Substance History Use: Uses substance without health or social issues: Tobacco Use Issues: Anxiety Disorder Abuse: Recurrent use of substance despite neg consequences: NONE Dependence: Experiences withdrawal or developed tolerances: Tobacco Dependence Issues: Anxiety Disorder Tobacco Details: Cigarettes - POLST Patient has POLST: No POLST Status: DNR Meds/Allgy - Home Medications Home Medications: Ambulatory Orders Medication Instructions Recorded Confirmed Aspirin EC [Ecotrin] 81 mg PO DAILY 04/17/13 06/21/18 Furosemide [Lasix] 40 mg PO DAILY 04/17/13 06/21/18 Levothyroxine [Synthroid] 50 mcg PO QDAC 04/17/13 06/21/18 Verapamil ER [Calan SA] 120 mg PO QPM 04/17/13 06/21/18 Atorvastatin Calcium 40 mg PO QPM 02/08/17 06/21/18 Hydrocodone/Acetaminophen 1 each PO Q5H PRN 08/25/17 06/21/18 [Hydrocodone-Acetamin 7.5-325] Metoprolol Succinate 100 mg PO 2100 08/25/17 06/21/18 Ipratropium/Albuterol Sulfate 3 ml IH QID 08/26/17 06/21/18 [Iprat-Albut 0.5-3(2.5) mg/3 ml] Alendronate [Fosamax] 70 mg PO Q7D 06/18/18 06/21/18 Fluticasone [Flonase] 1 sprays BO BID 06/18/18 06/21/18 Potassium Chloride [K-Dur] 20 meq PO DAILY 06/18/18 06/21/18 predniSONE [Deltasone] 10 mg PO DAILY #26 tablet 06/18/18 06/21/18 Budesonide/Formoterol Fumarate 2 puffs INH BID 06/21/18 06/21/18 [Symbicort 160-4.5 Mcg Inhaler] - Allergies Allergies/Adverse Reactions: Allergies Allergy/AdvReac Type Severity Reaction Status Date / Time Penicillins Allergy Unknown unknown Verified 06/21/18 08:57 Sulfa (Sulfonamide Allergy Unknown unknown Verified 06/21/18 08:57 Antibiotics) tape adhesive AdvReac Intermediate tears skin Uncoded 06/21/18 08:57 Review of Systems - Constitutional Constitutional: reports: Fatigue, Weakness, Poor appetite - Ears, Nose & Throat Ears, Nose & Throat: reports: Hearing loss, Nasal congestion - Cardiovascular Cariovascular: reports: Edema, Decr. exercise tolerance - Respiratory Respiratory: reports: Cough, Wheezing, SOB at rest, SOB with exertion - Gastrointestinal Gastrointestinal: reports: Poor appetite - Genitourinary Genitourinary: reports: Dysuria, Incontinence, Nocturia - Integumentary Integumentary: reports: Lesions, Dryness, Pigment changes, Other (BLE venous insufficiency) - Neurological Neurological: reports: General weakness, Memory problems, Pre-existing deficit, Abnormal gait - Hematologic/Lymphatic Hematologic/Lymphatic: reports: Anemia, Recurrent infections - All Other Systems All Other Systems: reports: Reviewed and negative Prior Level of Functionality: Living independently, but needs a higher level of care as she has been gradually becoming worse with her COPD and activity intolerance. She uses a 4-wheeled walker, chronically oxygen dependent on 2L nasal cannula at home. Exam - Vital Signs Reviewed Vital Signs: Yes Vital Signs: Vital Signs x48h Temp Pulse Resp BP Pulse Ox 06/21/18 11:50 81 17 132/50 H 93 06/21/18 10:41 73 17 144/80 H 98 06/21/18 10:30 78 11 L 06/21/18 08:49 36.6 C 81 16 163/80 H 89 L - Physical Exam General Appearance: positive: Alert, Moderate distress, Anxious Eyes Bilateral: positive: Normal inspection ENT: positive: Pharyngeal erythema, Dry mucous membranes Neck: positive: Trachea midline, Lymphadenopathy (R), Lymphadenopathy (L) Respiratory: positive: Chest non-tender, Wheezes, Rhonchi Cardiovascular: positive: No gallop, Tachycardia, Systolic murmur Conclusion/Plan - Problem List (1) Chronic obstructive pulmonary disease with (acute) exacerbation Conclusion/Plan: As per centricity review, the patient has had multiple office visits due to her progressive, COPD and is dependent on supplemental oxygen. She has been trailed on Prednisone boosts, and given doxycycline for lack of improvement. She unfortunately, continues to use cigarettes ~1/2 PPD, which makes this situation difficult to control. She has presented to our ED at least 3 times in the past several days and today, was noted to have an elevated potassium, with ongoing activity intolerance where speaking anymore than a few sentences makes her profoundly tired. Upon exam, the patient is found to be using her accessory muscles, can only speak in 1-2 sentences, and has a barrel chest. Plan: High dose IV steroids, IV Cefepime, nebulizers, high flow nasal cannula, frequent nursing and respiratory care. (2) Hyperkalemia Conclusion/Plan: The patient was found to have an elevated serum potassium of 6.3. She was treated with dextrose and insulin. There are a few possible causes for this; increased duo-neb use with the anticolenergic causing decreased GI motility leading to over absorption of her potassium supplement. RBC lysis, as the patient is found to be anemic, or other potassium sparing effects of me dications. She has a normal creatinine of 0.8. Plan: Routine labs and hold oral K+ supplement. (3) Normocytic anemia Conclusion/Plan: The patient is found to have a normal MCV of 96.8, a low hemoglobin of 11.3, a low hematocrit of 32.7. She denies any recent bleeding. She also has hypothyroid disease. Plan: Iron panel in the AM, TSH and monitor for bleed. Occult stools if they appear dark. (4) Oxygen dependent Conclusion/Plan: The patient has established home oxygen through [facility] care at home. Her usual flow rate is 2L per nasal cannula. She has been increasing the rate to 3L at times based on her increased shortness of breath. In her initial acute phase, the patient is on a high flow cannula as per RT recommendations. Plan: Continue to provide oxygen, check vital signs, and frequent respiratory care. (5) Tobacco dependence Conclusion/Plan: The patient states that her smoking history started when she was just 14 years old and for much of her adult life smoked at least 1 PPD. She states that she continues to have no interest in quitting, and her last cigarette was just this morning prior to admission. Plan: Offer nicotine patch daily and recommend pulmonary rehab upon discharge. (6) Activity intolerance related to fatigue Conclusion/Plan: The patient states that she has had more and more difficulty taking care of herself at home, has a dog who depends on her care, and has a very poor appetite. She denies insomnia or sleep apnea. She has been seen multiple times by her PCP and has undergone several trials to try to improve her breathing including Prednisone, and doxycycline. She continues to smoke. She appears very cachectic upon exam and overall unwell. Plan: Physical therapy when her breathing improves to evaluate for a higher level of care verses home health services. (7) Anorexia Conclusion/Plan: The patient states that her appetite has been very poor for the past several months; likely due to the inability to prepare meals as she cannot withstand extra activity, and from the increased overall work of breathing related to her progressive, ongoing COPD. Plan: Nutritional consult, a regular diet, high protein supplements, and treat her underlying COPD exacerbation. (8) Presence of stent in coronary artery in patient with coronary artery disease Conclusion/Plan: The patient suffered an [place] in the year 2015, and claims to have 1 coronary stent. She states that she does not see a tire classifier, and does not wish to. Upon admission, she has an elevated BNP of 406. Imaging did not show pulmonary congestion or evidence of fluid overload. She denies chest pain currently and her admitting troponin was negative. Her last echo was in May of 2018, and showed a normal EF of 60%. A repeat echo has been ordered. She is prescribed metoprolol, low dose ASA, a calcium channel stevo, a statin, and a diuretic at home. Plan: Continue home medications and monitor for cardiac symptoms such as hyper/hypotension, tachycardia, or acute chest pain. (9) Venous insufficiency of both lower extremities Conclusion/Plan: The patient has BLE chronic edema and is found to have overall discoloration of her BLEs in which they appear cyanotic, warm with faint pedal pulses. Plan: Ankle-brachial index US is now ordered and pending as she has weak peripheral pulses. (10) Do not resuscitate Conclusion/Plan: The patient has paperwork that has been scanned in the computer, indicating DNR status. She is not comfort care, and there is no POLST. She does not wish to fill one out on admission, but may be willing tomorrow. She has a POA named Ashley, who is her niece. Plan: Continue DNR status. - Lab Results Lab results reviewed: Yes Fly Bones: 06/21/18 09:10 06/21/18 10:01 - Diagnostic Imaging Results Diagnostic Imaging Results: positive: Final report reviewed - EKG Results EKG Interpreted Independently: Yes EKG Comparison: Unchanged from prior EKG EKG Findings: sinus Core Measures - Anticipated LOS I expect patient to be DC'd or transferred within 96 hours.: Yes - DVT/VTE - Prophylaxis VTE/DVT Device ordered at admit?: Yes VTE/DVT Prophylaxis med ordered at admit?: Yes - Stroke - Rehab Assessment Rehab services assessment to be ordered?: Yes - AMI - Statin at Admit Aspirin Prescribed on Admit: Yes
[2018-06-21] MEDS ORDERED: HYDROcod/ACETAM 7.5 MG/325 MG TABLET PO PRN (14:29)
[2018-06-21] MEDS ORDERED: IOPAMIDOL-300 100 ML VIAL IVP ONE (14:30)
[2018-06-21] MEDS: LEVALBUTEROL 1.25 MG/3 ML NEB INH SCH ×4 (15:14→22:47)
[2018-06-21] MEDS ORDERED: ONDANSETRON 4 MG/2 ML VIAL IVP PRN (16:38)
[2018-06-21] MEDS: CEFEPIME 2 GM in SODIUM CHLORIDE 0.9% MINIBAG 100 ML IV SCH (16:53)
[2018-06-21] MEDS: SODIUM CHLORIDE FLUSH 0.9% 10 ML SYRINGE IVP SCH (16:54)
[2018-06-21] MEDS: HYDROcod/ACETAM 7.5 MG/325 MG TABLET PO PRN ×2 (17:08→22:10)
[2018-06-21] MEDS: SODIUM CHLORIDE FLUSH 0.9% 10 ML SYRINGE IVP PRN ×2 (17:31→22:11)
[2018-06-21] MEDS: methylPREDNISolone SUCCINATE 125 MG/2 ML VIAL IVP SCH ×2 (17:31→22:11)
[2018-06-21] MEDS: BUDESONIDE 0.5 MG/2 ML NEB INH SCH (19:43)
[2018-06-21] MEDS: NICOTINE 14 MG PATCH TOP SCH (20:11)
[2018-06-21] MEDS: FLUTICASONE NASAL SPRAY NAS SCH (20:13)
[2018-06-21] MEDS: METOPROLOL SUCCINATE 50 MG TABLET PO SCH (20:13)
[2018-06-21] MEDS ORDERED: METOPROLOL SUCCINATE 50 MG TABLET PO SCH (21:00)
[2018-06-21] MEDS ORDERED: ATORVASTATIN 40 MG TABLET PO SCH (21:00)
[2018-06-21] MEDS ORDERED: CEFEPIME 2 GM in SODIUM CHLORIDE 0.9% MINIBAG 100 ML IV SCH (21:00)
--- NOTE | 2018-06-21 22:59 | Ultrasound Report ---
Reason: arterial insufficiency Procedure Date: 06/21/2018 Accession Number: [id number] / [id number] Procedure: US - Ankle Brachial Index CPT Code: FULL RESULT: EXAM: ANKLE BRACHIAL INDEX. EXAM DATE: 06/21/2018 09:37 PM. CLINICAL HISTORY: Arterial insufficiency. COMPARISON: None. TECHNIQUE: Bilateral brachial and posterior tibial artery segmental pressures obtained. FINDINGS: Right Leg: BOAT BUILDER: PSV 77.4 cm/sec. Biphasic waveform. DPA: PSV 58.2 cm/sec. Biphasic waveform. Left Leg: BOAT BUILDER: PSV 115 cm/sec. Monophasic waveform. DPA: PSV 20.4 cm/sec. Monophasic waveform. Brachial Artery Systolic Pressure: Right 124/74. Left 140/72. Posterior tibial Artery Systolic Pressure: Right 1149/86. Left 134/61. Ankle/Arm Index: Right 1.18. Left 1.04. IMPRESSION: Normal bilateral ABIs. No significant lower extremity arterial disease. RADIA
[2018-06-22] MEDS: SODIUM CHLORIDE FLUSH 0.9% 10 ML SYRINGE IVP SCH ×2 (00:22→09:33)
[2018-06-22] MEDS ORDERED: LEVALBUTEROL 1.25 MG/3 ML NEB INH ONE ×3 (00:40→04:38)
[2018-06-22] MEDS: HYDROcod/ACETAM 7.5 MG/325 MG TABLET PO PRN ×2 (03:08→10:09)
[2018-06-22] MEDS: CEFEPIME 2 GM in SODIUM CHLORIDE 0.9% MINIBAG 100 ML IV SCH (04:27)
[2018-06-22] MEDS: SODIUM CHLORIDE FLUSH 0.9% 10 ML SYRINGE IVP PRN ×2 (04:27→06:07)
[2018-06-22 05:29] LABS: BASOPHILS % (AUTO) 0.2 %; HGB - HEMOGLOBIN 10.7 g/dL (12.0-16.0); MEAN CORPUSCULAR HEMOGLOBIN 32.6 pg (27.0-31.0); MEAN CORPUSCULAR HGB CONC 33.2 g/dL (32.0-36.0); MEAN CORPUSCULAR VOLUME 98.1 fL (81.0-99.0); MEAN PLATELET VOLUME 6.4 fL (7.9-10.8); MONOCYTES % (AUTO) 2.6 %; NEUTROPHILS % (AUTO) 96.2 %; PLT - PLATELET COUNT 503 10^3/uL (130-450); RED BLOOD COUNT 3.27 10^6/uL (4.20-5.40); RED CELL DISTRIBUTION WIDTH 15.4 % (12.0-15.0); WHITE BLOOD COUNT 20.4 x10^3/uL (4.8-10.8)
[2018-06-22 05:35] LABS: ABNORMAL LYMPHS % (MANUAL) 0 %
[2018-06-22 05:43] LABS: MAGNESIUM 2.7 mg/dL (1.7-2.8); PHOSPHORUS 4.6 mg/dL (2.5-4.6)
[2018-06-22 05:54] LABS: % IRON SATURATION 14 % (20-50); IRON 34 ug/dL (28-170); TOTAL IRON BINDING CAPACITY 239 ug/dL (250-450); TRANSFERRIN 171 mg/dL (192-382)
[2018-06-22] MEDS: methylPREDNISolone SUCCINATE 125 MG/2 ML VIAL IVP SCH (06:07)
[2018-06-22] MEDS: LEVOTHYROXINE 25 MCG TABLET PO SCH (06:07)
[2018-06-22 06:14] LABS: BAND NEUTROPHILS % (MANUAL) 2 %; DIFFERENTIAL COMMENT MANUAL DIFFERENTIAL; LYMPHOCYTES # (MANUAL) 0.2 10^3/uL (1.5-3.5); LYMPHOCYTES % (MANUAL) 1 %; MONOCYTES # (MANUAL) 1.2 10^3/uL (0.0-1.0); NEUTROPHILS % (MANUAL) 91 %; PLATELET ESTIMATE, MANUAL INCREASED (>450,000) (NORMAL); RBC MORPHOLOGY (MULTIPLE) NORMAL APPEARANCE (NORMAL)
[2018-06-22 07:33] LABS: ALBUMIN 3.4 g/dL (3.2-5.5); ALBUMIN/GLOBULIN RATIO 1.3 (1.0-2.2); ALKALINE PHOSPHATASE 92 IU/L (42-121); ALT ALANINE AMINOTRANSFERASE 29 IU/L (10-60); AST ASPARTATE AMINOTRANSFERASE 52 IU/L (10-42); BILIRUBIN,TOTAL 0.7 mg/dL (0.2-1.0); BUN - BLOOD UREA NITROGEN 30 mg/dL (6-20); CALCIUM 9.1 mg/dL (8.5-10.3); CARBON DIOXIDE - CO2 33 mmol/L (21-32); CHLORIDE 82 mmol/L (101-111); CREATININE 0.9 mg/dL (0.4-1.0); GFR - MDRD 61 (>89); GLUCOSE 97 mg/dL (70-100); SODIUM 124 mmol/L (135-145)
[2018-06-22] MEDS: LEVALBUTEROL 1.25 MG/3 ML NEB INH SCH ×5 (07:37→20:53)
[2018-06-22] MEDS: BUDESONIDE 0.5 MG/2 ML NEB INH SCH ×2 (07:37→20:52)
[2018-06-22] MEDS ORDERED: ASPIRIN EC 81 MG TABLET PO SCH (09:00)
[2018-06-22] MEDS ORDERED: ENOXAPARIN 40 MG/0.4 ML SYRINGE SUBQ SCH (09:00)
[2018-06-22] MEDS: NICOTINE 14 MG PATCH TOP SCH (09:29)
[2018-06-22] MEDS: FLUTICASONE NASAL SPRAY NAS SCH ×2 (09:30→20:44)
[2018-06-22] MEDS: FUROSEMIDE 20 MG TABLET PO SCH (09:31)
[2018-06-22] MEDS: POLYETHYLENE GLYCOL 3350 17 GM PACKET PO SCH (09:31)
[2018-06-22] MEDS ORDERED: ACETAMINOPHEN 160 MG/5 ML SUSP UDC PO PRN (11:13)
[2018-06-22] MEDS ORDERED: ATROPINE 1% OPHTH DROPS 2 ML SL PRN (11:13)
[2018-06-22] MEDS ORDERED: CARBOXYMETHYLCELLULOSE OPHTH DROPS EACHEYE PRN (11:13)
[2018-06-22] MEDS ORDERED: HALOPERIDOL 1 MG TABLET PO PRN (11:13)
[2018-06-22] MEDS ORDERED: BACLOFEN 10 MG TABLET PO PRN (11:13)
--- NOTE | 2018-06-22 11:23 | ADVANCE CARE PLANNING NOTE ---
Advance Care Planning - Date/Time Date: 06/22/18 Time: 11:21 - Purpose of encounter Text: To establish goals of care, and to gather end of life wishes. - Parties in attendance Parties in attendance: My patient, Shantal Slaughter and myself, SUNNY Burks. - Decisional capacity Decisional capacity of: The patient currently has full decisional capacity and can state her medical conditions and their implications to the end of her life. She can attest to her multiple office clinic visits in the past several months with her PCP, Cinthya Huggins as she has struggled for a long time with her end stage COPD and continued tobacco dependence. She can state her current address, and where we are located today. She understands and wants the medical team to abide by her wishes of being a DNR with comfort measures only. - Subjective/Patient's story Subjective/Patient's story: Shantal states, "I have lived a full life, and I am done". She no longer can see the benefit of ongoing treatments and/or tests. She does not even want treatment with antibiotics in the near future as she does not see this adding to the quality of her life. She has signed a newly filled out POLST stating her POA, Ashley Alatorre who is her niece and DNR/comfort care wishes. - Objective/Medical story Objective/Medical Story: The patient has had several office visits with her PCP dating back to this past December for management of her COPD as she has been on chronic oxygen at home, but continues to use cigarettes, ~1/2 PPD. She has not been willing to give this up as she finds comfort from her tobacco dependence. She has been trailed on several steroid tapers, and antibiotics outpatient. She has not been able to enjoy her food for quite some time due to increased breathing efforts, and she notes this to be disturbing. She presented to the ED to be admitted for medical care, but continued to be profoundly debilitated, despite high dose steroids, high flow oxygen and nebulizers that were given hourly overnight. This morning, she has not been able to consume her food, has been annoyed with lab draws, a heart monitor, and frequent nursing interventions, so requests that she be transitioned to comfort cares only. - Goals of Care Goals of care determinations: Comfort only using morphine for ease of breathing and to treat her neck and back pain, lorazepam for increased anxiety, nebulizers, and high flow oxygen. Hospice care at home with care givers or at a facility. - Plan Plan: Comfort care orders only, mcmahon if needed. Palliative eating. A Hospice consult has been initiated and I have spoken with our social work team to coordinate final arrangements. - Code Status Code Status: Do Not Attempt Resuscitation - Time Spent on Advance Care Planning Time spent on advance care plannin - Other Other comments: Soon after this encounter, her family arrived including her POA, Ashley olivera, her sister and [id number]. They were supportive and tearful. A medical update was given and Shantal (my patient) was smiling, which I had not seen since being admitted from the ED. Everyone concluded that they were at peace with the current situation.
[2018-06-22] MEDS ORDERED: ONDANSETRON ODT 4 MG TABLET TL PRN (11:35)
[2018-06-22] MEDS: MORPHINE SOL 10 MG/0.5 ML SYRINGE PO PRN ×5 (12:52→23:09)
--- NOTE | 2018-06-22 18:55 | PROVIDER PROGRESS NOTE ---
Subjective - Prog Note Date Prog Note Date: 06/22/18 Prog Note Time: 09:00 - Subjective Pt reports feeling: No change Subjective: Shantal states that she had a very difficult time overnight with her breathing and is requesting a Hospice consult. She complains of ongoing shortness of breath and states, "I have lived a long life". She denies chest pain, nausea, vomiting, rashes or a new, productive cough. Current Medications - Current Medications Current Medications: Active Medications Acetaminophen (Tylenol) 640 mg PO Q4H PRN PRN Reason: Fever >101 Hydrocodone Bitart/Acetaminophen ([place] 7.5/325) 2 tab PO Q4H PRN PRN Reason: PAIN Last Admin: 06/22/18 10:09 Dose: 2 tab Atropine Sulfate (Isopto Atropine 1% Ophth Drops) 1 - 4 drops SL Q2H PRN PRN Reason: Excessive secretions Baclofen (Lioresal) 10 mg PO QID PRN PRN Reason: Hiccups Budesonide (Pulmicort) 0.5 mg INH RTBID [facility] Last Admin: 06/22/18 07:37 Dose: 0.5 mg Carboxymethylcellulose (Refresh 1% Ophth Drops) 1 drops EACHEYE QID PRN PRN Reason: Dry Eye Fluticasone Propionate (Flonase) 1 sprays BO BID [facility] Last Admin: 06/22/18 09:30 Dose: 1 sprays Furosemide (Lasix) 40 mg PO DAILY [facility] Last Admin: 06/22/18 09:31 Dose: 40 mg Haloperidol (Haldol) 1 mg PO Q6H PRN PRN Reason: Nausea / Vomiting Levalbuterol HCl (Xopenex) 1.25 mg INH RTQ4H [facility] Last Admin: 06/22/18 16:31 Dose: 1.25 mg Levothyroxine Sodium (Synthroid) 50 mcg PO QDAC [facility] Last Admin: 06/22/18 06:07 Dose: 50 mcg Lorazepam (Ativan) 1 mg PO Q6H PRN PRN Reason: Anxiety/Agitation Metoprolol Succinate (Toprol Xl) 100 mg PO 2100 [facility] Last Admin: 06/21/18 20:13 Dose: 100 mg Morphine Sulfate (Roxanol) 10 mg PO Q2HR PRN PRN Reason: PAIN Last Admin: 06/22/18 18:51 Dose: 10 mg Nicotine (Nicoderm) 1 patch TOP DAILY [facility] Last Admin: 06/22/18 09:29 Dose: 1 patch Ondansetron HCl (Zofran Odt) 4 mg TL Q4HR PRN PRN Reason: Nausea / Vomiting Polyethylene Glycol (Miralax) 17 gm PO DAILY [facility] Last Admin: 06/22/18 09:31 Dose: 17 gm Prednisone (Deltasone) 60 mg PO DAILYWM [facility] Furosemide [Lasix] 40 mg PO DAILY 04/17/13 Metoprolol Succinate 100 mg PO 2100 08/25/17 Ipratropium/Albuterol Sulfate [Iprat-Albut 0.5-3(2.5) mg/3 ml] 3 ml IH QID 08/26/17 Budesonide/Formoterol Fumarate [Symbicort 160-4.5 Mcg Inhaler] 2 puffs INH BID 06/21/18 Objective - Vital Signs/Intake & Output Reviewed Vital Signs: Yes Vital Signs: Vital Signs x48h Pulse Resp 06/22/18 16:36 76 20 06/22/18 11:04 79 20 Intake & Output: Intake & Output 06/19/18 06/20/18 06/21/18 06/22/18 23:59 23:59 23:59 23:59 Intake Total 500 880 Output Total 300 1300 Balance 200 -420 - Objective General Appearance: positive: Alert, Moderate distress, Anxious Eyes Bilateral: positive: PERRL, No lid inflammation Eyes: OU Conjunctivae pale ENT: positive: Pharyngeal erythema, Dry mucous membranes Neck: positive: Thyroid nml, No JVD, Trachea midline, Stiff neck Respiratory: positive: Chest non-tender, Wheezes, Rhonchi Cardiovascular: positive: Regular rate & rhythm, No gallop, Systolic murmur, Decreased pulse(s) Peripheral Pulses: 1+ Radial (R), 1+ Radial (L) Abdomen: positive: Non-tender, Nml bowel sounds Back: positive: Nml inspection Skin: positive: No rash, Warm, Dry, Cyanosis Extremities: positive: Pedal edema, Other (chronic BLE swelling and cyanosis) Neurologic/Psychiatric: positive: Oriented x3, CN's nml (2-12), Weakness, Sensory loss, Depressed mood/affect Reflexes: Bicep (R): 2+, Bicep (L): 2+ - Lab Results Fish Bones: 06/22/18 05:19 06/22/18 05:19 Other Labs: Lab Results x24hrs 06/22/18 06/22/18 06/22/18 Range/Units 05:19 05:19 05:19 WBC (4.8-10.8) x10^3/uL RBC (4.20-5.40) 10^6/uL Hgb (12.0-16.0) g/dL Hct (37.0-47.0) % MCV (81.0-99.0) fL MCH (27.0-31.0) pg MCHC (32.0-36.0) g/dL RDW (12.0-15.0) % Plt Count (130-450) 10^3/uL MPV (7.9-10.8) fL Neut # (Auto) Lymph # (Auto) [place] # (Auto) Eos # (Auto) Baso # (Auto) Absolute Nucleated RBC Total Counted Band Neuts % (Manual) (0 - 10) % Abnorm Lymph % (Manual) % Nucleated RBC % Neutrophils # (Manual) (1.5-6.6) 10^3/uL Lymphocytes # (Manual) (1.5-3.5) 10^3/uL Monocytes # (Manual) (0.0-1.0) 10^3/uL Eosinophils # (Manual) (0-0.7) 10^3/uL Basophils # (Manual) (0-0.1) 10^3/uL Differential Comment Platelet Estimate (NORMAL) RBC Morph Micro Appear (NORMAL) Sodium 124 L (135-145) mmol/L Potassium 5.8 H (3.5-5.0) mmol/L Chloride 82 L (101-111) mmol/L Carbon Dioxide 33 H (21-32) mmol/L Anion Gap 9.0 (6-13) BUN 30 H (6-20) mg/dL Creatinine 0.9 (0.4-1.0) mg/dL Estimated GFR (MDRD) 61 L (>89) Glucose 97 (70-100) mg/dL Lactic Acid 0.8 (0.5-2.2) mmol/L Calcium 9.1 (8.5-10.3) mg/dL Ionized Calcium NO Phosphorus (2.5-4.6) mg/dL Magnesium (1.7-2.8) mg/dL Iron (28-170) ug/dL TIBC (250-450) ug/dL % Saturation (20-50) % Transferrin (192-382) mg/dL Total Bilirubin 0.7 (0.2-1.0) mg/dL AST 52 H (10-42) IU/L ALT 29 (10-60) IU/L Alkaline Phosphatase 92 (42-121) IU/L B-Natriuretic Peptide 400 H (5-100) pg/mL Total Protein 6.0 L (6.7-8.2) g/dL Albumin 3.4 (3.2-5.5) g/dL Globulin 2.6 (2.1-4.2) g/dL Albumin/Globulin Ratio 1.3 (1.0-2.2) 06/22/18 06/22/18 06/22/18 Range/Units 05:19 05:19 05:19 WBC 20.4 H (4.8-10.8) x10^3/uL RBC 3.27 L (4.20-5.40) 10^6/uL Hgb 10.7 L (12.0-16.0) g/dL Hct 32.0 L (37.0-47.0) % MCV 98.1 (81.0-99.0) fL MCH 32.6 H (27.0-31.0) pg MCHC 33.2 (32.0-36.0) g/dL RDW 15.4 H (12.0-15.0) % Plt Count 503 H (130-450) 10^3/uL MPV 6.4 L (7.9-10.8) fL Neut # (Auto) Not Reportable Lymph # (Auto) Not Reportable [place] # (Auto) Not Reportable Eos # (Auto) Not Reportable Baso # (Auto) Not Reportable Absolute Nucleated RBC Not Reportable Total Counted 100 Band Neuts % (Manual) 2 (0 - 10) % Abnorm Lymph % (Manual) 0 % Nucleated RBC % Not Reportable Neutrophils # (Manual) 19.0 H (1.5-6.6) 10^3/uL Lymphocytes # (Manual) 0.2 L (1.5-3.5) 10^3/uL Monocytes # (Manual) 1.2 H (0.0-1.0) 10^3/uL Eosinophils # (Manual) 0.0 (0-0.7) 10^3/uL Basophils # (Manual) 0.0 (0-0.1) 10^3/uL Differential Comment MANUAL DIFFERENTIAL Platelet Estimate INCREASED (>450,000) (NORMAL) RBC Morph Micro Appear NORMAL APPEARANCE (NORMAL) Sodium (135-145) mmol/L Potassium (3.5-5.0) mmol/L Chloride (101-111) mmol/L Carbon Dioxide (21-32) mmol/L Anion Gap (6-13) BUN (6-20) mg/dL Creatinine (0.4-1.0) mg/dL Estimated GFR (MDRD) (>89) Glucose (70-100) mg/dL Lactic Acid (0.5-2.2) mmol/L Calcium (8.5-10.3) mg/dL Ionized Calcium Phosphorus 4.6 (2.5-4.6) mg/dL Magnesium 2.7 (1.7-2.8) mg/dL Iron 34 (28-170) ug/dL TIBC 239 L (250-450) ug/dL % Saturation 14 L (20-50) % Transferrin 171 L (192-382) mg/dL Total Bilirubin (0.2-1.0) mg/dL AST (10-42) IU/L ALT (10-60) IU/L Alkaline Phosphatase (42-121) IU/L B-Natriuretic Peptide (5-100) pg/mL Total Protein (6.7-8.2) g/dL Albumin (3.2-5.5) g/dL Globulin (2.1-4.2) g/dL Albumin/Globulin Ratio (1.0-2.2) ABX Reporting Has patient been on IV antibiotics over the past 48 hours?: Yes Assessment/Plan - Problem List (1) COPD exacerbation Impression: As per centricity review, the patient has had multiple office visits due to her progressive, COPD and is dependent on supplemental oxygen. She has been trailed on Prednisone boosts, and given doxycycline for lack of improvement. She unfortunately, continues to use cigarettes ~1/2 PPD, which makes this situation difficult to control. Today on exam she continues to have ongoing activity intolerance where speaking anymore than a few sentences makes her profoundly tired. She is no longer attempting to get out of bed since being on comfort cares. Plan: Continue nebulizers, high flow nasal cannula verses regular nasal cannula based on comfort needs, frequent nursing and respiratory care. (2) End of life care Impression: Shantal states, "I have lived a full life, and I am done". She no longer can see the benefit of ongoing treatments and/or tests. She does not even want treatment with antibiotics in the near future as she does not see this adding to the quality of her life. She has signed a newly filled out POLST stating her POA, Ashley Alatorre who is her niece and DNR/comfort care wishes. Dr. Pichardo, [facility] has consulted and plans are to transfer to SNF for Hospice care. Plan: Await placement. (3) Activity intolerance related to fatigue Impression: The patient states that she has had more and more difficulty taking care of herself at home, has a dog who depends on her care, and has a very poor appetite. She denies insomnia or sleep apnea. She has been seen multiple times by her PCP and has undergone several trials to try to improve her breathing including Prednisone, and doxycycline. She continues to smoke. She appears very cachectic upon exam and overall unwell. She is now on comfort care and will be transferred to a SNF for Hospice care in the next 1-2 days, so PT has been cancelled. Plan: Continue comfort cares. (4) Anorexia Impression: The patient states that her appetite has been very poor for the past several months; likely due to the inability to prepare meals as she cannot withstand extra activity, and from the increased overall work of breathing related to her progressive, ongoing COPD. A nutrition consult was made and Aurora stopped by to encourage high protein shakes as an alternative as it is difficult to eat given her continued respiratory distress. Plan: Palliative eating and monitor for aspiration. (5) Oxygen dependent Impression: The patient has established home oxygen through [facility] at home. Her usual flow rate is 2L per nasal cannula. She has been increasing the rate to 3L at times based on her increased shortness of breath. In her initial acute phase, the patient is on a high flow cannula and later in the day was transitioned to a nasal cannula. Plan: Continue to provide oxygen and frequent respiratory care. (6) Tobacco dependence Impression: The patient states that her smoking history started when she was just 14 years old and for much of her adult life smoked at least 1 PPD. She states that she continues to have no interest in quitting, and her last cigarette was just this morning prior to admission. She is wearing a nicotine patch. Plan: Offer nicotine patch daily and treat agitation with lorazepam. (7) Venous insufficiency of both lower extremities Impression: The patient has BLE chronic edema and is found to have overall discoloration of her BLEs in which they appear cyanotic, warm with faint pedal pulses. SHARON ultrasounds were normal, indicating that her edema is entirely from poor venous return. Plan: Continue comfort cares. (8) Do not resuscitate Impression: The patient has paperwork that has been scanned in the computer, indicating DNR status. She is now comfort care, and I assisted in completing a new POLST form that indicates DNR with comfort cares only (no antibiotics or tube feedings). She has a POA named Ashley, who is her niece and she was given the original POLST form. Plan: Continue DNR status.
[2018-06-22] MEDS: METOPROLOL SUCCINATE 50 MG TABLET PO SCH (20:44)
[2018-06-22] MEDS: LORazepam 0.5 MG TABLET PO PRN (21:55)
[2018-06-22] MEDS ORDERED: MORPHINE 2 MG/ML CARPUJECT IVP SCH (22:00)
[2018-06-22] MEDS ORDERED: MORPHINE SOL 10 MG/0.5 ML SYRINGE PO SCH (22:00)
[2018-06-23] MEDS: LEVOTHYROXINE 25 MCG TABLET PO SCH (06:23)
[2018-06-23] MEDS: MORPHINE SOL 10 MG/0.5 ML SYRINGE PO PRN ×2 (06:28→12:13)
[2018-06-23] MEDS: LEVALBUTEROL 1.25 MG/3 ML NEB INH SCH (07:40)
[2018-06-23] MEDS: BUDESONIDE 0.5 MG/2 ML NEB INH SCH (07:40)
[2018-06-23] MEDS: HYDROcod/ACETAM 7.5 MG/325 MG TABLET PO PRN (07:58)
[2018-06-23] MEDS: LORazepam 0.5 MG TABLET PO PRN (07:58)
[2018-06-23] MEDS ORDERED: predniSONE 20 MG TABLET PO SCH (08:00)
[2018-06-23 08:22] VITALS: BP 119/57
--- NOTE | 2018-06-23 08:27 | Discharge Plan ---
"Discharge Plan for SNF / [facility] - Discharge Plan And Transition Orders Disposition: 03 SNF DC/Xfer Condition: Stable Allergies and Adverse Reactions: Allergies Allergy/AdvReac Type Severity Reaction Status Date / Time Penicillins Allergy Unknown unknown Verified 06/21/18 08:57 Sulfa (Sulfonamide Allergy Unknown unknown Verified 06/21/18 08:57 Antibiotics) tape adhesive AdvReac Intermediate tears skin Uncoded 06/21/18 08:57 - SNF / [facility] Transition Orders Admit to (Facility): Care Age sa[facility] Under the care of (Name): Dr. Pichardo Discharge Diagnosis: COPD exacerbation (J44.1) Oxygen dependent (Z99.81) Tobacco dependence (F17.200) Activity intolerance related to fatigue (R53.83) Anorexia (R63.0) Do not resuscitate (Z66) Venous insufficiency of both lower extremities (I87.2) End of life care (Z51.5) Medicare Certification Statement: I certify that Post Hospital fdc care is medically necessary on a continuing basis for any of the conditions for which she/he is receiving care during hospitalization. Notify PCP of admission and forward orders to primary provider for signature. Other Notification Orders: Call PCP immediately if patient develops dyspnea, chest pain/tightness or edema. House Bowel Program: Yes Additional Bowel Program Orders: If no BM after 2 days, nurse may give M.O.M. 30ml PO PRN and/or ducolax Supp 1 KS and/or ANIRUDH 250mg P.O., and/or senna 1-2 tabs PO. On day 3 nurse may give repeat above order until residents constipation is resolved. Annual Influenza Vaccine (between May 13 and December 10): No Two-step PPD per [facility] [id number] or approved exception documents: No Oxygen Orders: Titrate oxygen per nasal cannula for comfort 2-6L. Medication Orders: PLEASE REFER TO THE DISCHARGE MEDICATION LIST. Insulin Orders?: No - Medications New Prescriptions: RX: LORazepam [Lorazepam] 0.5 mg PO Q4H PRN #20 tablet PRN Reason: Anxiety Morphine Sulfate [Morphine Sulf Oral (Roxanol)] 10 mg PO Q1H PRN #30 ml PRN Reason: Pain/Dyspnea - Diet Type: Geriatric Texture: Regular Liquids: Thin May have monthly special meal: Yes - Therapies | Activity Weight Bearing: Full Weight"
--- NOTE | 2018-06-23 10:14 | DISCHARGE SUMMARY ---
Discharge Summary Admit Date: 06/21/18 Discharge Date: 06/23/18 Discharging Provider: SUNNY Burks Primary Care Provider: Dr. 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 End of life care- ongoing, stable. Hyperkalemia (E87.5) resolved. Anemia, unspecified (D64.9) chronic, stable. Dependence on supplemental oxygen (Z99.81) chronic, stable. Nicotine dependence, unspecified, uncomplicated (F17.200) chronic, stable. Other fatigue (R53.83) chronic, stable. Anorexia (R63.0) chronic, stable. 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 Venous insufficiency (chronic) (peripheral) (I87.2) chronic, stable. Do not resuscitate (Z66)chronic, stable. - HPI History of Present Illness: Shantal Slaughter is a 77-year old female with a past medical history of hypertension, [place]-coronary stent in 2016, CAD, murmur, bilateral cataracts, COPD, shortness of breath, oxygen dependent, tobacco dependence, hypothyroidism, urinary incontinence, recent UTI, and osteoarthritis. The patient has been to this ED at least 3 times in the past several days with similar symptoms of activity intolerance, increased shortness of breath, and lethargy. She has been seeing her PCP at least monthly for the past 6-8 months due to her worsening COPD. She has recently been treated with oral prednisone and doxycycline. She finished treatment for a UTI in early February in which Levofloxacin was used. She denies current chest pain, nausea, vomiting, rashes, syncope, recent falls, or orthopnea. She states that her last cigarette was just this morning and is not interested in quitting. She states that she uses 2L nasal cannula at home, and has increased the flow rate to 3L lately, but has continued to have difficulty b reathing. She states that she lives alone, but has not had the care that she needs regarding meal preparation, ADLs and basic house keeping. Labs show an elevated potassium at 6.3, a low sodium of 123, an elevated CO2 of 33, an elevated BUN of 30, a negative troponin, and an elevated BNP of 406. CBC labs showed an elevated WBC count of 24.4, anemia with a hemoglobin of 11.3, and a hematocrit of 32.7. Imaging showed no PE which was completed due to an elevated d-dimer, and the chest x-ray showed increased lung volumes with flattened diaphragms consistent with this COPD exacerbation. She will be admitted to inpatient for further symptom control and treatment of her COPD exacerbation. - CONSULTS | PROCEDURES Consultations: Hospice-Dr. Pichardo - HOSPITAL COURSE Hospital Course: (1) COPD exacerbation As per centricity review, the patient has had multiple office visits due to her progressive, COPD and is dependent on supplemental oxygen. She has been trailed on Prednisone boosts, and given doxycycline for lack of improvement. She unfortunately, continues to use cigarettes ~1/2 PPD, which makes this situation difficult to control. Today on exam she continues to have ongoing activity intolerance where speaking anymore than a few sentences makes her profoundly tired. She is no longer attempting to get out of bed since being on comfort cares. The patient was continued on nebulizers, high flow nasal cannula verses regular nasal cannula based on comfort needs, frequent nursing and respiratory care. (2) End of life care Shantal states, "I have lived a full life, and I am done". She no longer can see the benefit of ongoing treatments and/or tests. She does not even want treatment with antibiotics in the near future as she does not see this adding to the quality of her life. She has signed a newly filled out POLST stating her POA, Ashley Alatorre who is her niece and DNR/comfort care wishes. Dr. Pichardo, Hospice care has consulted and plans are to transfer to SNF for Hospice care. (3) Activity intolerance related to fatigue The patient states that she has had more and more difficulty taking care of herself at home, has a dog who depends on her care, and has a very poor appetite. She denies insomnia or sleep apnea. She has been seen multiple times by her PCP and has undergone several trials to try to improve her breathing including Prednisone, and doxycycline. She continues to smoke. She appears very cachectic upon exam and overall unwell. She is now on comfort care and will be transferred to a SNF for Hospice care in the next 1-2 days, so PT has been cancelled. (4) Anorexia The patient states that her appetite has been very poor for the past several months; likely due to the inability to prepare meals as she cannot withstand extra activity, and from the increased overall work of breathing related to her progressive, ongoing COPD. A nutrition consult was made and Aurora stopped by to encourage high protein shakes as an alternative as it is difficult to eat given her continued respiratory distress. (5) Oxygen dependent The patient has established home oxygen through [facility] care at home. Her usual flow rate is 2L per nasal cannula. She has been increasing the rate to 3L at times based on her increased shortness of breath. In her initial acute phase, the patient is on a high flow cannula and later in the day was transitioned to a nasal cannula. (6) Tobacco dependence The patient states that her smoking history started when she was just 14 years old and for much of her adult life smoked at least 1 PPD. She states that she continues to have no interest in quitting, and her last cigarette was just the morning prior to admission. She is wearing a nicotine patch. (7) Venous insufficiency of both lower extremities The patient has BLE chronic edema and is found to have overall discoloration of her BLEs in which they appear cyanotic, warm with faint pedal pulses. SHARON ultrasounds were normal, indicating that her edema is entirely from poor venous return. (8) Do not resuscitate The patient has paperwork that has been scanned in the computer, indicating DNR status. She is now comfort care, and I assisted in completing a new POLST form that indicates DNR with comfort cares only (no antibiotics or tube feedings). She has a POA named Ashley, who is her niece and she was given the original POLST form. Disposition: The patient was continued on comfort cares until the time of transfer. Her family and POA were at the bedside. She was transported via ambulance to [facility] to undergo ongoing Hospice care. - ALLERGIES Allergies/Adverse Reactions: Allergies Allergy/AdvReac Type Severity Reaction Status Date / Time Penicillins Allergy Unknown unknown Verified 06/21/18 08:57 Sulfa (Sulfonamide Allergy Unknown unknown Verified 06/21/18 08:57 Antibiotics) tape adhesive AdvReac Intermediate tears skin Uncoded 06/21/18 08:57 - MEDICATIONS Home Medications: Ambulatory Orders Medication Instructions Recorded Confirmed Furosemide [Lasix] 40 mg PO DAILY 04/17/13 06/21/18 Metoprolol Succinate 100 mg PO 2100 08/25/17 06/21/18 Ipratropium/Albuterol Sulfate 3 ml IH QID 08/26/17 06/21/18 [Iprat-Albut 0.5-3(2.5) mg/3 ml] Budesonide/Formoterol Fumarate 2 puffs INH BID 06/21/18 06/21/18 [Symbicort 160-4.5 Mcg Inhaler] LORazepam [Lorazepam] 0.5 mg PO Q4H PRN #20 tablet 06/22/18 Morphine Sulfate [Morphine Sulf 10 mg PO Q1H PRN #30 ml 06/22/18 Oral (Roxanol)] Nicotine 14 mg Patch [Nicoderm] 1 each TOP Q24H #7 patch 06/23/18 - PHYSICAL EXAM AT DISCHARGE General Appearance: positive: Anxious, Lethargic Eyes Bilateral: positive: No lid inflammation (Mild lid inflammation, equally.) ENT: positive: Dry mucous membranes Neck: positive: No JVD, Trachea midline Respiratory: positive: Chest non-tender, Wheezes, Rhonchi Cardiovascular: positive: Irregularly irregular, Systolic murmur, Decreased pulse(s) Peripheral Pulses: positive: 1+ Abdomen: positive: Non-tender, Nml bowel sounds, Other (rounded, soft) Back: positive: Nml inspection Skin: positive: No rash, Warm, Dry, Cyanosis, Pallor Extremities: positive: Pedal edema, Joint swelling, Other (discoloration to BLE, chronic edema due to vascular disease.) Neurologic/Psychiatric: positive: Oriented x3, Weakness, Sensory loss, Slurred/abnml speech, Depressed mood/affect, Other (lethargy at times due to medications, tremors more noticable today while awake.) Reflexes: Bicep (R): 2+, Bicep (L): 2+ - LABS Result Diagrams: 06/22/18 05:19 06/22/18 05:19 - DIAGNOSTIC IMAGING Diagnostic Imaging Results: Final report reviewed Diagnostic Imaging Results Comments: EXAM: CHEST RADIOGRAPHY EXAM DATE: 06/21/2018 09:42 AM. IMPRESSION: Redemonstration of hyperinflated lungs suggestive of obstructive lung disease without acute cardiopulmonary abnormality. EXAM: CT ANGIOGRAM CHEST EXAM DATE: 06/21/2018 11:47 AM. IMPRESSION: No PE. EXAM: ANKLE BRACHIAL INDEX. EXAM DATE: 06/21/2018 09:37 PM. IMPRESSION: Normal bilateral ABIs. No significant lower extremity arterial disease. - FOLLOW UP Follow Up: Admit to (Facility): Care Age of [place] Under the care of (Name): Dr. Pichardo Discharge Diagnosis: COPD exacerbation (J44.1) Oxygen dependent (Z99.81) Tobacco dependence (F17.200) Activity intolerance related to fatigue (R53.83) Anorexia (R63.0) Do not resuscitate (Z66) Venous insufficiency of both lower extremities (I87.2) End of life care (Z51.5) - TIME SPENT Time Spent in Discharge (Minutes): 60
[2018-06-23] MEDS: NICOTINE 14 MG PATCH TOP SCH (10:23)
[2018-06-23] MEDS: LORazepam 0.5 MG TABLET PO SCH ×2 (10:31→12:13)
[2018-06-23] MEDS: FUROSEMIDE 20 MG TABLET PO SCH (10:31)
[2018-06-23] MEDS: POLYETHYLENE GLYCOL 3350 17 GM PACKET PO SCH (10:31)
== END 2018-06-23 14:16 | disposition home or self-care (01) | DRG 191 ==
LOC: EDUNIT# → ED 08:49 → MS2 12:56
PROVIDERS: ADMIT Nurse Practitioner; ATTEND Nurse Practitioner
DX: J44.9 Chronic obstructive pulmonary disease, unspecified (principal); J43.9 Emphysema, unspecified; R64 Cachexia; D72.829 Elevated white blood cell count, unspecified; I10 Essential (primary) hypertension; F17.210 Nicotine dependence, cigarettes, uncomplicated; E87.1 Hypo-osmolality and hyponatremia; I50.30 Unspecified diastolic (congestive) heart failure; E87.5 Hyperkalemia; D64.9 Anemia, unspecified; I25.10 Atherosclerotic heart disease of native coronary artery without angina pectoris; I87.2 Venous insufficiency (chronic) (peripheral); I11.0 Hypertensive heart disease with heart failure; E03.9 Hypothyroidism, unspecified; E78.00 Pure hypercholesterolemia, unspecified; G62.9 Polyneuropathy, unspecified; F17.218 Nicotine dependence, cigarettes, with other nicotine-induced disorders; F41.8 Other specified anxiety disorders; R63.0 Anorexia; Z66 Do not resuscitate; Z51.5 Encounter for palliative care; Z60.2 Problems related to living alone; I25.2 Old myocardial infarction; Z99.81 Dependence on supplemental oxygen; Z87.440 Personal history of urinary (tract) infections; Z95.5 Presence of coronary angioplasty implant and graft; Z68.21 Body mass index [BMI] 21.0-21.9, adult; Z79.899 Other long term (current) drug therapy; Z79.51 Long term (current) use of inhaled steroids; Z98.62 Peripheral vascular angioplasty status; Z79.82 Long term (current) use of aspirin
CPT/HCPCS: 36415; 36600; 71046; 71275; 80053; 82803; 83540; 83605; 83690; 83735; 83880; 84100; 84132; 84466; 84484; 85025; 85379; 87070; 87077; 87181; 87205; 87275; 87276; 93005; 93306; 93922; 94640; 96374; 96375; 99284

== ENCOUNTER 2018-06-23 14:09 | Outpatient (CLI) | payer MEDICARE, OTHER | END 2018-06-23 14:10 | disposition home or self-care (01) | LOC: EMS 14:09 | PROVIDERS: ATTEND Surgery | DX: J44.9 Chronic obstructive pulmonary disease, unspecified (principal); R41.82 Altered mental status, unspecified; Z99.81 Dependence on supplemental oxygen | CPT/HCPCS: A0425; A0428 ==